=== PATIENT | female | born 1960 | race American Indian/Alaskan Native ===

== ENCOUNTER 2017-02-11 18:30 | Emergency (ER) | payer BC, MEDICAID, OTHER ==
[2017-02-11 20:00] VITALS: BP 147/94
[2017-02-11 20:21] LABS: CHLORIDE,CL 105 mmol/L (101-111); SODIUM,NA 141 mmol/L (135-145)
--- NOTE | 2017-02-11 21:22 | EDM.PDOC ---
ED HPI GENERAL MEDICAL PROBLEM - General Chief Complaint: General Stated Complaint: WEAK Time Seen by Provider: 02/11/17 20:21 Source of Information: Reports: Patient History Limitations: Reports: No Limitations - History of Present Illness INITIAL COMMENTS - FREE TEXT/NARRATIVE: c/o feeling, weak and nauseated. Reports being "sick" since January. Was seen approximately 2 weeks ago for sinus infection, Just finished Augmentin on . - Related Data Allergies Allergy/AdvReac Type Severity Reaction Status Date / Time escitalopram oxalate Allergy Cannot Verified 10/27/15 10:23 [From Lexapro] Remember sertraline HCl [From Zoloft] Allergy Cannot Verified 10/27/15 10:23 Remember Home Meds: Home Meds Levothyroxine Sodium [Tirosint] 125 mcg PO DAILY 01/05/14 [History] [place]/Min Oil/Mana/Wool Alcoh [Eucerin Creme] 1 applic TOP QID PRN 09/09/15 [ History] Triamcinolone Acetonide [Triamcinolone Acetonide 0.1% Crm] 1 applic TOP QID PRN 09/09/15 [History] Cholecalciferol (Vitamin D3) [Vitamin D] 2 tab PO DAILY 09/30/15 [History] Past Medical History HEENT History: Reports: Cataract, Sinusitis Cardiovascular History: Reports: High Cholesterol Respiratory History: Reports: Bronchitis, Recurrent, Pneumonia, Recurrent Gastrointestinal History: Reports: Chronic Constipation, Chronic Diarrhea Genitourinary History: Reports: None 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: Musculoskeletal History: Reports: Fibromyalgia Other Musculoskeletal History: muscle aches Neurological History: Reports: None Psychiatric History: Reports: Depression Endocrine/Metabolic History: Reports: Hypothyroidism Hematologic History: Reports: Anemia Immunologic History: Reports: None Oncologic (Cancer) History: Reports: None Dermatologic History: Reports: Urticaria, Other (See Below) Other Dermatologic History: ALLERGIC TO SUNLIGHT - Past Surgical History HEENT Surgical History: Reports: None Social & Family History - Tobacco Use Smoking Status *Q: Former Smoker Years of Tobacco use: 20 Used Tobacco, but Quit: No Month Tobacco Last Used: 08/20/2012 Second Hand Smoke Exposure: No - Caffeine Use Caffeine Use: Reports: Coffee - Alcohol Use Days Per Week of Alcohol Use: 0 - Recreational Drug Use Recreational Drug Use: No - Living Situation & Occupation Living situation: Reports: with Family ED ROS GENERAL - Review of Systems Review Of Systems: See Below Constitutional: Reports: Malaise HEENT: Reports: No Symptoms Respiratory: Reports: No Symptoms Cardiovascular: Reports: No Symptoms GI/Abdominal: Reports: Nausea : Reports: No Symptoms Musculoskeletal: Reports: No Symptoms Skin: Reports: No Symptoms Neurological: Reports: No Symptoms Psychiatric: Reports: No Symptoms ED EXAM, GENERAL - Physical Exam Exam: See Below Exam Limited By: No Limitations General Appearance: Alert, No Apparent Distress, Anxious Ears: Normal External Exam, Normal TMs Nose: Normal Inspection. No: Nasal Drainage Throat/Mouth: Normal Inspection, Normal Lips, Normal Teeth, Normal Oropharynx, Normal Voice Head: Atraumatic, Normocephalic Neck: Normal Inspection, Supple, Non-Tender. No: Lymphadenopathy (L), Lymphadenopathy (R) Respiratory/Chest: No Respiratory Distress, Lungs Clear, Normal Breath Sounds Cardiovascular: Normal Peripheral Pulses, Regular Rate, Rhythm GI/Abdominal: Normal Bowel Sounds, Soft, Non-Tender Extremities: Normal Inspection Neurological: Alert, Oriented, CN II-XII Intact, Normal Cognition, Normal Gait, Normal Reflexes Psychiatric: Normal Affect, Depressed Mood, Flat Affect Skin Exam: Warm, Dry, Intact, Normal Color, No Rash Course - Vital Signs Last Recorded V/S: Last Vital Signs Temp 98.5 F 02/11/17 19:59 Pulse 119 H 02/11/17 19:59 Resp 20 02/11/17 19:59 BP 147/94 H 02/11/17 19:59 Pulse Ox 100 02/11/17 19:59 - Orders/Labs/Meds Labs: Laboratory Tests 02/11/17 02/11/17 02/11/17 Range/Units 19:55 19:55 19:55 WBC 12.0 H (5.0-10.0) 10^3/uL RBC 4.61 (4.2-5.4) 10^6/uL Hgb 14.1 (12.0-16.0) g/dL Hct 42.5 (37.0-47.0) % MCV 92.2 (80-100) fL MCH 30.6 (27.0-34.0) pg MCHC 33.2 (33.0-35.0) g/dL Plt Count 290 (150-450) 10^3/uL Neut % (Auto) 66.8 (42.2-75.2) % Lymph % (Auto) 25.8 (20.5-50.1) % [place] % (Auto) 5.4 (2-8) % Eos % (Auto) 1.9 (1.0-3.0) % Baso % (Auto) 0.1 (0.0-1.0) % Sodium 141 (135-145) mmol/L Potassium 3.8 (3.6-5.0) mmol/L Chloride 105 (101-111) mmol/L Carbon Dioxide 23.0 (21.0-31.0) mmol/L Anion Gap 16.8 BUN 17 (7-18) mg/dL Creatinine 0.9 (0.6-1.3) mg/dL Est Cr Clr Drug Dosing TNP Estimated GFR (MDRD) > 60 BUN/Creatinine Ratio 18.88 Glucose 118 H (74-105) mg/dL Calcium 9.3 (8.4-10.2) mg/dl Total Bilirubin 0.5 (0.2-1.0) mg/dL AST 19 (10-42) IU/L ALT 23 (10-60) IU/L Alkaline Phosphatase 73 (42-121) IU/L Troponin I < 0.02 (0.00-0.02) ng/ml C-Reactive Protein 0.7 (0.0-1.3) mg/dL B-Natriuretic Peptide (0-100) pg/ml Total Protein 7.7 (6.7-8.2) g/dl Albumin 4.3 (3.2-5.5) g/dl Globulin 3.4 Albumin/Globulin Ratio 1.26 Urine Color (YELLOW) Urine Appearance (CLEAR) Urine pH (5.0-9.0) Ur Specific [place] (1.005-1.030) Urine Protein (NEGATIVE) Urine Glucose (UA) (NEGATIVE) Urine Ketones (NEGATIVE) Urine Occult Blood (NEGATIVE) Urine Nitrite (NEGATIVE) Urine Bilirubin (NEGATIVE) Urine Urobilinogen (0.2-1.0) mg/dL Ur Leukocyte Esterase (NEGATIVE) Urine RBC /HPF Urine WBC (0-5/HPF) /HPF Ur Epithelial Cells /HPF Urine Bacteria (0-FEW/HPF) /HPF 02/11/17 02/11/17 Range/Units 19:55 20:48 WBC (5.0-10.0) 10^3/uL RBC (4.2-5.4) 10^6/uL Hgb (12.0-16.0) g/dL Hct (37.0-47.0) % MCV (80-100) fL MCH (27.0-34.0) pg MCHC (33.0-35.0) g/dL Plt Count (150-450) 10^3/uL Neut % (Auto) (42.2-75.2) % Lymph % (Auto) (20.5-50.1) % [place] % (Auto) (2-8) % Eos % (Auto) (1.0-3.0) % Baso % (Auto) (0.0-1.0) % Sodium (135-145) mmol/L Potassium (3.6-5.0) mmol/L Chloride (101-111) mmol/L Carbon Dioxide (21.0-31.0) mmol/L Anion Gap BUN (7-18) mg/dL Creatinine (0.6-1.3) mg/dL Est Cr Clr Drug Dosing Estimated GFR (MDRD) BUN/Creatinine Ratio Glucose (74-105) mg/dL Calcium (8.4-10.2) mg/dl Total Bilirubin (0.2-1.0) mg/dL AST (10-42) IU/L ALT (10-60) IU/L Alkaline Phosphatase (42-121) IU/L Troponin I (0.00-0.02) ng/ml C-Reactive Protein (0.0-1.3) mg/dL B-Natriuretic Peptide 17 (0-100) pg/ml Total Protein (6.7-8.2) g/dl Albumin (3.2-5.5) g/dl Globulin Albumin/Globulin Ratio Urine Color Yellow (YELLOW) Urine Appearance Clear (CLEAR) Urine pH 7.0 (5.0-9.0) Ur Specific [place] 1.015 (1.005-1.030) Urine Protein Negative (NEGATIVE) Urine Glucose (UA) Negative (NEGATIVE) Urine Ketones Negative (NEGATIVE) Urine Occult Blood Negative (NEGATIVE) Urine Nitrite Negative (NEGATIVE) Urine Bilirubin Negative (NEGATIVE) Urine Urobilinogen 0.2 (0.2-1.0) mg/dL Ur Leukocyte Esterase Negative (NEGATIVE) Urine RBC 0-5 /HPF Urine WBC 0-5 (0-5/HPF) /HPF Ur Epithelial Cells Few /HPF Urine Bacteria Occasional (0-FEW/HPF) /HPF Departure - Departure Time of Disposition: 21:17 Disposition: Home, Self-Care 01 Condition: Fair Clinical Impression: Weakness Fatigue Qualifiers: Fatigue type: unspecified Qualified Code(s): R53.83 - Other fatigue - Discharge Information Instructions: Fatigue Referrals: PCP,None [Primary Care Provider] - Forms: ED Department Discharge Additional Instructions: increase fluids follow up in clinic this week
--- NOTE | 2017-02-13 12:50 | EKG ---
02/11/2017 - CHRISTAL JARRETT - A 12-lead EKG shows normal sinus rhythm and sinus tachycardia with heart rate of 107. No significant ST elevation or ST depression noted on this 12-lead EKG. [facility] /[id number]
== END 2017-02-11 21:24 | disposition home or self-care (01) ==
LOC: DL.ED 18:30
DX: R53.1 Weakness (principal); R53.83 Other fatigue; E78.00 Pure hypercholesterolemia, unspecified; E03.9 Hypothyroidism, unspecified; Z87.01 Personal history of pneumonia (recurrent); Z88.8 Allergy status to other drugs, medicaments and biological substances; Z79.899 Other long term (current) drug therapy; Z87.891 Personal history of nicotine dependence
CPT/HCPCS: 36415; 71010; 80053; 81001; 83880; 84484; 85025; 86140; 87081; 87430; 93005; 99284

== ENCOUNTER 2019-07-14 12:22 | Inpatient (IN) | payer OTHER ==
[2019-07-14] MEDS ORDERED: Sodium Chloride 0.9% 1,000 ML IV ONE (13:17)
[2019-07-14 13:31] LABS: ANION GAP 14.8; CHLORIDE,CL 105 mmol/L (101-111); SODIUM,NA 139 mmol/L (135-145)
--- NOTE | 2019-07-14 14:23 | CR ---
EXAMINATION: Chest 2V SEX: Female AGE: 58 years CLINICAL HISTORY: 58-year-old female complaining of chest pain (2 month) and cough. Interpretation: Peribronchial "cuffing". No air trapping. Despite less than optimal inspiratory effort normal cardiac silhouette without signs of pulmonary vascular congestion, cephalization of flow, alveolar edema or dependent pleural effusion. External case monitor leads. No lung mass, hilar lymphadenopathy or focal lobar pneumonia. No atelectasis/collapse. No pneumothorax or pneumomediastinum.. CONCLUSION: Mild bronchitis. No new signs of heart failure, lung mass or focal lobar pneumonia when compared to 11 February 2017 exam.
[2019-07-14] MEDS ORDERED: Iopamidol 755 Mg/ML 100 ML Bottle IVPUSH ONE (14:31)
--- NOTE | 2019-07-14 14:37 | EDM.PDOC ---
ED HPI GENERAL MEDICAL PROBLEM - General Chief Complaint: Respiratory Problem Stated Complaint: COLD Time Seen by Provider: 07/14/19 14:15 Source of Information: Reports: Patient History Limitations: Reports: No Limitations - History of Present Illness INITIAL COMMENTS - FREE TEXT/NARRATIVE: This 58 yo female patient reports to the ED with substernal chest pain and a cough. The patient reports she has been on 2 different prescriptions for Augmentin and 1 prescription for Azithromycin. The patient reports her cough has continued, but over the past couple of days she has began to have the chest pain. The patient reports her initial antibiotics were prescribed for a right sided ear infection. The Azithromycin was prescribed for a bronchitis. The patient did not follow-up in the clinic due to the chest pain. Duration: Day(s):, Constant, Getting Worse Location: Reports: Chest Quality: Reports: Ache, Dull Severity: Moderate Improves with: Reports: None Worsens with: Reports: None Context: Reports: Other Associated Symptoms: Reports: Cough Left Shoulder Pain Score (Numeric/FACES): 10 - Related Data Allergies Allergy/AdvReac Type Severity Reaction Status Date / Time escitalopram oxalate Allergy Cannot Verified 10/27/15 10:23 [From Lexapro] Remember sertraline HCl [From Zoloft] Allergy Cannot Verified 10/27/15 10:23 Remember Home Meds: Home Meds Levothyroxine Sodium [Tirosint] 125 mcg PO DAILY 01/05/14 [History] [place]/Min Oil/Mana/Wool Alcoh [Eucerin Creme] 1 applic TOP QID PRN 09/09/15 [ History] Triamcinolone Acetonide [Triamcinolone Acetonide 0.1% Crm] 1 applic TOP QID PRN 09/09/15 [History] Cholecalciferol (Vitamin D3) [Vitamin D] 2 tab PO DAILY 09/30/15 [History] Methotrexate 2.5 mg PO DAILY 07/14/19 [History] predniSONE [Prednisone] 10 mg PO DAILY 07/14/19 [History] Past Medical History HEENT History: Reports: Cataract, Sinusitis Cardiovascular History: Reports: High Cholesterol Respiratory History: Reports: Bronchitis, Recurrent, Pneumonia, Recurrent Gastrointestinal History: Reports: Chronic Constipation, Chronic Diarrhea Genitourinary History: Reports: None 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: Musculoskeletal History: Reports: Fibromyalgia Other Musculoskeletal History: muscle aches Neurological History: Reports: None Psychiatric History: Reports: Depression Endocrine/Metabolic History: Reports: Hypothyroidism Hematologic History: Reports: Anemia Immunologic History: Reports: None Oncologic (Cancer) History: Reports: None Dermatologic History: Reports: Urticaria, Other (See Below) Other Dermatologic History: ALLERGIC TO SUNLIGHT - Past Surgical History HEENT Surgical History: Reports: None Social & Family History - Family History Family Medical History: Noncontributory - Caffeine Use Caffeine Use: Reports: Coffee - Living Situation & Occupation Living situation: Reports: with Family ED ROS GENERAL - Review of Systems Review Of Systems: Comprehensive ROS is negative, except as noted in HPI. ED EXAM, GENERAL - Physical Exam Exam: See Below Exam Limited By: No Limitations General Appearance: Alert, WD/WN, Moderate Distress Eye Exam: Bilateral Eye: EOMI, Normal Inspection, PERRL Ears: Normal External Exam, Normal Canal, Hearing Grossly Normal, Normal TMs Nose: Normal Inspection, Normal Mucosa, No Blood Throat/Mouth: Normal Inspection, Normal Lips, Normal Teeth, Normal Gums, Normal Oropharynx, Normal Voice, No Airway Compromise Head: Atraumatic, Normocephalic Neck: Normal Inspection, Supple, Non-Tender, Full Range of Motion Respiratory/Chest: No Respiratory Distress, Lungs Clear, Normal Breath Sounds, No Accessory Muscle Use, Chest Non-Tender Cardiovascular: Normal Peripheral Pulses, Regular Rate, Rhythm, No Edema, No Gallop, No JVD, No Murmur, No Rub GI/Abdominal: Normal Bowel Sounds, Soft, Non-Tender, No Organomegaly, No Distention, No Abnormal Bruit, No Mass (Female) Exam: Deferred Rectal (Female) Exam: Deferred Back Exam: Normal Inspection, Full Range of Motion, NT Extremities: Normal Inspection, Normal Range of Motion, Non-Tender, Normal Capillary Refill, No Pedal Edema Neurological: Alert, Oriented, CN II-XII Intact, Normal Cognition, Normal Gait, Normal Reflexes, No Motor/Sensory Deficits Psychiatric: Normal Affect, Normal Mood Skin Exam: Warm, Dry, Intact, Normal Color, No Rash Lymphatic: No Adenopathy Course - Vital Signs Last Recorded V/S: Last Vital Signs Temp 36.6 C 07/14/19 14:05 Pulse 113 H 07/14/19 14:05 Resp 18 07/14/19 14:05 BP 148/94 H 07/14/19 14:05 Pulse Ox 99 12/09/19 14:05 - Orders/Labs/Meds Orders: Active Orders 24 hr Category Date Time Status EKG Documentation Completion [RC] URGENT Care 07/14/19 12:55 Ordered Chest w Cont [CT] Urgent Exams 07/14/19 14:31 Ordered CULTURE BLOOD [BC] Stat Lab 07/14/19 12:56 Ordered DRUG SCREEN URINE BIORAD [URCHEM] Stat Lab 07/14/19 12:56 Ordered UA RFX BERNARDO AND CULT IF INDIC [URIN] Urgent Lab 07/14/19 12:56 Ordered Labs: Laboratory Tests 07/14/19 07/14/19 07/14/19 Range/Units 13:05 13:05 13:05 WBC 11.7 H (5.0-10.0) 10^3/uL RBC 4.28 (4.2-5.4) 10^6/uL Hgb 14.1 (12.0-16.0) g/dL Hct 41.8 (37.0-47.0) % MCV 97.7 (80-100) fL MCH 32.9 (27.0-34.0) pg MCHC 33.7 (33.0-35.0) g/dL Plt Count 268 (150-450) 10^3/uL Neut % (Auto) 82.5 H (42.2-75.2) % Lymph % (Auto) 13.4 L (20.5-50.1) % [place] % (Auto) 3.1 (2-8) % Eos % (Auto) 0.9 L (1.0-3.0) % Baso % (Auto) 0.1 (0.0-1.0) % Sodium 139 (135-145) mmol/L Potassium 3.8 (3.6-5.0) mmol/L Chloride 105 (101-111) mmol/L Carbon Dioxide 23.0 (21.0-31.0) mmol/L Anion Gap 14.8 BUN 11 (7-18) mg/dL Creatinine 1.0 (0.6-1.3) mg/dL Est Cr Clr Drug Dosing TNP Estimated GFR (MDRD) 57 BUN/Creatinine Ratio 11.00 Glucose 139 H (74-105) mg/dL Lactic Acid 2.6 H (0.5-2.2) mmol/L Calcium 9.1 (8.4-10.2) mg/dl Total Bilirubin 0.7 (0.2-1.0) mg/dL AST 28 (10-42) IU/L ALT 32 (10-60) IU/L Alkaline Phosphatase 72 (42-121) IU/L Troponin I < 0.02 (0.00-0.02) ng/ml Total Protein 7.4 (6.7-8.2) g/dl Albumin 4.2 (3.2-5.5) g/dl Globulin 3.2 Albumin/Globulin Ratio 1.31 Meds: Medications Discontinued Medications Generic Name Dose Route Start Last Admin Trade Name Freq PRN Reason Stop Dose Admin Sodium Chloride 1,000 mls @ 999 mls/hr 07/14/19 13:17 07/14/19 13:30 Normal Saline IV 07/14/19 14:17 999 mls/hr .BOLUS ONE Administration Iopamidol 100 ml 07/14/19 14:31 Isovue-370 (76%) IVPUSH 07/14/19 14:32 ONETIME ONE Departure - Departure Time of Disposition: 14:38 Disposition: Admitted As Inpatient 65 Condition: Fair Clinical Impression: Cough Chest pain Qualifiers: Chest pain type: chest pain on breathing Qualified Code(s): R07.1 - Chest pain on breathing; R07.81 - Pleurodynia - Discharge Information *PRESCRIPTION DRUG MONITORING PROGRAM REVIEWED*: Not Applicable *COPY OF PRESCRIPTION DRUG MONITORING REPORT IN PATIENT ELE: Not Applicable Care Plan Goals: Discussed the patient's history, examination, lab and x-ray results with Dr. Zapata. Dr. Zapata accepted the patient for continued evaluation and management as an inpatient at [facility]. Prior to admission to the floor, the patient was taken to radiology for a CT of her chest to make sure the patient does not have a PE. - My Orders Last 24 Hours: My Active Orders 07/14/19 12:55 EKG Documentation Completion [RC] URGENT 07/14/19 12:56 CULTURE BLOOD [BC] Stat DRUG SCREEN URINE BIORAD [URCHEM] Stat UA RFX BERNARDO AND CULT IF INDIC [URIN] Urgent 07/14/19 14:31 Chest w Cont [CT] Urgent - Assessment/Plan Last 24 Hours: My Active Orders 07/14/19 12:55 EKG Documentation Completion [RC] URGENT 07/14/19 12:56 CULTURE BLOOD [BC] Stat DRUG SCREEN URINE BIORAD [URCHEM] Stat UA RFX BERNARDO AND CULT IF INDIC [URIN] Urgent 07/14/19 14:31 Chest w Cont [CT] Urgent
--- NOTE | 2019-07-14 16:07 | PCM.HP ---
H&P History of Present Illness - General Date of Service: 07/14/19 Admit Problem/Dx: Admission Diagnosis/Problem Admission Diagnosis/Problem Pneumonia Source of Information: Patient - History of Present Illness Initial Comments - Free Text/Narative: 58-year-old with a history of rheumatoid arthritis who is immunocompromised on prednisone. Patient developed right ear drainage about a month ago. Was described Augmentin that she took about a week. Few days later was developing cough. Given another 10 days of Augmentin. Later she developed sinus frontal maxillary pressure. Symptoms did not improve and subsequently received azithromycin for the same symptoms. On the day of admission the patient presented to the emergency room with chest pain. This is midsternal chest pain, only present with coughing. No associated sputum. No hemoptysis. No abdominal pain, no diarrhea, no leg swelling. In the emergency room the patient was noted to have leukocytosis, elevated lactic acid, tachycardia along with possible infection and was concern for sepsis. Left Shoulder Pain Score (Numeric/FACES): 10 - Related Data Allergies/Adverse Reactions: Allergies Allergy/AdvReac Type Severity Reaction Status Date / Time cetirizine [From Zyrtec] Allergy Chest Pain Verified 07/14/19 15:40 escitalopram oxalate Allergy Cannot Verified 10/27/15 10:23 [From Lexapro] Remember sertraline HCl [From Zoloft] Allergy Cannot Verified 10/27/15 10:23 Remember Home Medications: Home Meds Levothyroxine Sodium [Tirosint] 125 mcg PO DAILY 01/05/14 [History] Triamcinolone Acetonide [Triamcinolone Acetonide 0.1% Crm] 1 applic TOP QID PRN 09/09/15 [History] Cholecalciferol (Vitamin D3) [Vitamin D] 1 tab PO DAILY 09/30/15 [History] Folic Acid 1 mg PO DAILY 07/14/19 [History] Methotrexate 7.5 mg PO .EVERYFRIDAY 07/14/19 [History] Tocilizumab [Actemra] 162 mg SQ .[id number] 07/14/19 [History] predniSONE [Prednisone] 10 mg PO DAILY 07/14/19 [History] Past Medical History HEENT History: Reports: Cataract, Sinusitis Cardiovascular History: Reports: High Cholesterol Respiratory History: Reports: Bronchitis, Recurrent, Pneumonia, Recurrent Gastrointestinal History: Reports: Chronic Constipation, Chronic Diarrhea Genitourinary History: Reports: None 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: Musculoskeletal History: Reports: Fibromyalgia Other Musculoskeletal History: muscle aches Neurological History: Reports: None Psychiatric History: Reports: Depression Endocrine/Metabolic History: Reports: Hypothyroidism Hematologic History: Reports: Anemia Immunologic History: Reports: None Oncologic (Cancer) History: Reports: None Dermatologic History: Reports: Urticaria, Other (See Below) Other Dermatologic History: ALLERGIC TO SUNLIGHT - Past Surgical History HEENT Surgical History: Reports: None Social & Family History - Family History Family Medical History: Noncontributory - Tobacco Use Smoking Status *Q: Never Smoker Second Hand Smoke Exposure: No - Caffeine Use Caffeine Use: Reports: Coffee, Soda, Tea - Recreational Drug Use Recreational Drug Use: No - Living Situation & Occupation Living situation: Reports: with Family H&P Review of Systems - Review of Systems: Review Of Systems: See Below General: Denies: Fever Pulmonary: Reports: Shortness of Breath, Pleuritic Chest Pain, Cough. Denies: Wheezing, Sputum, Hemoptysis Cardiovascular: Reports: Chest Pain. Denies: Palpitations (Pleuritic), Edema Gastrointestinal: Denies: Abdominal Pain Genitourinary: Denies: Dysuria Psychiatric: Denies: Confusion Exam - Exam Exam: See Below - Vital Signs Vital Signs: Last Vital Signs Temp 36.6 C 07/14/19 14:05 Pulse 113 H 07/14/19 14:05 Resp 18 07/14/19 14:05 BP 148/94 H 07/14/19 14:05 Pulse Ox 99 07/14/19 14:05 Weight: 92.805 kg - Exam Quality Assessment: No: Supplemental Oxygen General: Alert, Oriented HEENT: EOMI Neck: Supple Lungs: Clear to Auscultation, Normal Respiratory Effort Cardiovascular: Regular Rate, Regular Rhythm, Tachycardia GI/Abdominal Exam: Normal Bowel Sounds, Soft, Non-Tender Extremities: No Pedal Edema Skin: Warm Neuro Extensive - Mental Status: Alert, Oriented x3, Normal Mood/Affect - Patient Data Lab Results Last 24 hrs: Laboratory Results - last 24 hr 07/14/19 07/14/19 07/14/19 Range/Units 13:05 13:05 13:05 WBC 11.7 H (5.0-10.0) 10^3/uL RBC 4.28 (4.2-5.4) 10^6/uL Hgb 14.1 (12.0-16.0) g/dL Hct 41.8 (37.0-47.0) % MCV 97.7 (80-100) fL MCH 32.9 (27.0-34.0) pg MCHC 33.7 (33.0-35.0) g/dL Plt Count 268 (150-450) 10^3/uL Neut % (Auto) 82.5 H (42.2-75.2) % Lymph % (Auto) 13.4 L (20.5-50.1) % [place] % (Auto) 3.1 (2-8) % Eos % (Auto) 0.9 L (1.0-3.0) % Baso % (Auto) 0.1 (0.0-1.0) % Sodium 139 (135-145) mmol/L Potassium 3.8 (3.6-5.0) mmol/L Chloride 105 (101-111) mmol/L Carbon Dioxide 23.0 (21.0-31.0) mmol/L Anion Gap 14.8 BUN 11 (7-18) mg/dL Creatinine 1.0 (0.6-1.3) mg/dL Est Cr Clr Drug Dosing TNP Estimated GFR (MDRD) 57 BUN/Creatinine Ratio 11.00 Glucose 139 H (74-105) mg/dL Lactic Acid 2.6 H (0.5-2.2) mmol/L Calcium 9.1 (8.4-10.2) mg/dl Total Bilirubin 0.7 (0.2-1.0) mg/dL AST 28 (10-42) IU/L ALT 32 (10-60) IU/L Alkaline Phosphatase 72 (42-121) IU/L Troponin I < 0.02 (0.00-0.02) ng/ml Total Protein 7.4 (6.7-8.2) g/dl Albumin 4.2 (3.2-5.5) g/dl Globulin 3.2 Albumin/Globulin Ratio 1.31 Urine Color (YELLOW) Urine Appearance (CLEAR) Urine pH (5.0-9.0) Ur Specific [place] (1.005-1.030) Urine Protein (NEGATIVE) Urine Glucose (UA) (NEGATIVE) Urine Ketones (NEGATIVE) Urine Occult Blood (NEGATIVE) Urine Nitrite (NEGATIVE) Urine Bilirubin (NEGATIVE) Urine Urobilinogen (0.2-1.0) mg/dL Ur Leukocyte Esterase (NEGATIVE) Urine RBC /HPF Urine WBC (0-5/HPF) /HPF Ur Epithelial Cells (NOT SEEN) /HPF Urine Bacteria (0-FEW/HPF) /HPF Urine Opiates Screen (NEGATIVE) Ur Oxycodone Screen (NEGATIVE) Urine Methadone Screen (NEGATIVE) Ur Barbiturates Screen (NEGATIVE) U Tricyclic Antidepress (NEGATIVE) Ur Phencyclidine Scrn (NEGATIVE) Ur Amphetamine Screen (NEGATIVE) U Methamphetamines Scrn (NEGATIVE) Urine MDMA Screen (NEGATIVE) U Benzodiazepines Scrn (NEGATIVE) Urine Cocaine Screen (NEGATIVE) U Marijuana (THC) Screen (NEGATIVE) 07/14/19 07/14/19 Range/Units 15:05 15:05 WBC (5.0-10.0) 10^3/uL RBC (4.2-5.4) 10^6/uL Hgb (12.0-16.0) g/dL Hct (37.0-47.0) % MCV (80-100) fL MCH (27.0-34.0) pg MCHC (33.0-35.0) g/dL Plt Count (150-450) 10^3/uL Neut % (Auto) (42.2-75.2) % Lymph % (Auto) (20.5-50.1) % [place] % (Auto) (2-8) % Eos % (Auto) (1.0-3.0) % Baso % (Auto) (0.0-1.0) % Sodium (135-145) mmol/L Potassium (3.6-5.0) mmol/L Chloride (101-111) mmol/L Carbon Dioxide (21.0-31.0) mmol/L Anion Gap BUN (7-18) mg/dL Creatinine (0.6-1.3) mg/dL Est Cr Clr Drug Dosing Estimated GFR (MDRD) BUN/Creatinine Ratio Glucose (74-105) mg/dL Lactic Acid (0.5-2.2) mmol/L Calcium (8.4-10.2) mg/dl Total Bilirubin (0.2-1.0) mg/dL AST (10-42) IU/L ALT (10-60) IU/L Alkaline Phosphatase (42-121) IU/L Troponin I (0.00-0.02) ng/ml Total Protein (6.7-8.2) g/dl Albumin (3.2-5.5) g/dl Globulin Albumin/Globulin Ratio Urine Color Yellow (YELLOW) Urine Appearance Clear (CLEAR) Urine pH 5.5 (5.0-9.0) Ur Specific [place] 1.010 (1.005-1.030) Urine Protein Negative (NEGATIVE) Urine Glucose (UA) Negative (NEGATIVE) Urine Ketones Negative (NEGATIVE) Urine Occult Blood Trace-intact H (NEGATIVE) Urine Nitrite Negative (NEGATIVE) Urine Bilirubin Negative (NEGATIVE) Urine Urobilinogen 0.2 (0.2-1.0) mg/dL Ur Leukocyte Esterase Negative (NEGATIVE) Urine RBC 0-5 /HPF Urine WBC Not seen (0-5/HPF) /HPF Ur Epithelial Cells Rare (NOT SEEN) /HPF Urine Bacteria Rare (0-FEW/HPF) /HPF Urine Opiates Screen Negative (NEGATIVE) Ur Oxycodone Screen Negative (NEGATIVE) Urine Methadone Screen Negative (NEGATIVE) Ur Barbiturates Screen Negative (NEGATIVE) U Tricyclic Antidepress Negative (NEGATIVE) Ur Phencyclidine Scrn Negative (NEGATIVE) Ur Amphetamine Screen Negative (NEGATIVE) U Methamphetamines Scrn Negative (NEGATIVE) Urine MDMA Screen Negative (NEGATIVE) U Benzodiazepines Scrn Negative (NEGATIVE) Urine Cocaine Screen Negative (NEGATIVE) U Marijuana (THC) Screen Negative (NEGATIVE) Result Diagrams: 07/14/19 13:05 07/14/19 13:05 - Problem List (1) Chest pain SNOMED Code(s): 10927052 ICD Code: R07.9 - CHEST PAIN, UNSPECIFIED Status: Acute Current Visit: No Qualifiers: Chest pain type: chest pain on breathing Qualified Code(s): R07.1 - Chest pain on breathing; R07.81 - Pleurodynia (2) Cough SNOMED Code(s): 72308153 ICD Code: R05 - COUGH Status: Acute Current Visit: No Problem List Initiated/Reviewed/Updated: Yes Orders Last 24hrs: Active Orders 24 hr Category Date Time Status Admission Diagnosis [ADT] Routine ADT 07/14/19 15:14 Ordered Admission Status [Patient Status] [ADT] Routine ADT 07/14/19 15:14 Active EKG Documentation Completion [RC] URGENT Care 07/14/19 12:55 Active Chest w Cont [CT] Urgent Exams 07/14/19 14:31 Taken BASIC METABOLIC PANEL,BMP [CHEM] AM Lab 07/15/19 05:15 Ordered CBC WITH AUTO DIFF [HEME] AM Lab 07/15/19 05:15 Ordered CULTURE BLOOD [BC] Stat Lab 07/14/19 13:05 Received LACTIC ACID [CHEM] AM Lab 07/15/19 05:11 Ordered LACTIC ACID [CHEM] Timed Lab 07/14/19 17:00 Ordered TROPONIN I [CHEM] Timed Lab 07/15/19 17:00 Ordered Pharmacy to Dose - Vancomycin Med 07/14/19 15:45 Ordered 1 dose .XX ASDIRECTED Piperacillin/Tazobactam [Zosyn] 3.375 gm Med 07/14/19 15:45 Ordered Sodium Chloride 0.9% [Normal Saline] 100 ml IV Q6H Medication Orders Piperacillin Sod/Tazobactam (Sod 3.375 gm/ Sodium Chloride) 100 mls @ 200 mls/ hr IV Q6HR [facility] Vancomycin HCl (Pharmacy To Dose - Vancomycin) 1 dose .XX ASDIRECTED [facility] Assessment/Plan Comment:: 58-year-old presented with right ear ache and drainage developing into symptoms of sinusitis and possibly bronchitis/pneumonia. Evaluate for sepsis We will repeat lactic acid Treat for infection Because of sinusitis, bronchitis might be bacterial infection Obtain sputum culture Obtain blood culture The patient has not improved with outpatient antibiotic courses of repeated Augmentin and azithromycin We will treat with vancomycin and Zosyn Other causes of dry cough might be sinus drainage, gastroesophageal reflux disease We will also add nasal steroid, PPI Obtain chest CT to evaluate for other causes of dry cough Chest pain is unlikely cardiac We will repeat another troponin History rheumatoid arthritis Continue prednisone DVT prophylaxis with subcutaneous heparin
--- NOTE | 2019-07-14 16:20 | CT ---
EXAMINATION: Chest w Cont SEX: Female AGE: 58 years CLINICAL HISTORY: 58-year-old female with left intercostal sternal CHEST wall PAIN. No known cardiac abnormalities. Cough. WBC 7600. Scan technique: Volume acquisition of data from the chest (bony thorax, lungs and mediastinum) obtained during the intravenous administration 75 cc nonionic Isovue 370 contrast at 5 cc/s (via injector per PE protocol) while patient was lying supine on the Siemens multislice scanner [place], [place]. All data archived in the PACS system for storage, reformatting and study. Interpretation: 1. No sign of intraluminal filling defect or thrombus pulmonary artery circulation either lung. 2. No abnormal focal areas of oligemia, peripheral pleural-based infarct, or dependent pleural effusion. 3. No focal lobar atelectasis/collapse or infiltrate. (Isolated tiny 4.3 mm pleural-based nodule laterally in the right midlung, anteriorly. No other parenchymal lung nodules.) 4. Normal cardiac size and configuration. No pericardial effusion. 5. No pulmonary vascular congestion or alveolar edema. No thoracic aortic aneurysm. 6. Cholecystectomy. Fatty liver. Upper abdominal viscera otherwise unremarkable. CONCLUSION: No evidence of pulmonary embolism/infarct. No heart failure. No Lung mass. No lobar pneumonia.
[2019-07-14] MEDS: Piperacillin/Tazobactam 3.375 GM in Sodium Chloride 0.9% 100 ML IV SCH (19:10)
[2019-07-14] MEDS: Fluticasone Propionate Nasal Spray 16 GM Bottle NASBOTH SCH (20:47)
[2019-07-14] MEDS ORDERED: Ondansetron 4 MG/2 ML SDV IVPUSH PRN (21:29)
[2019-07-14] MEDS ORDERED: Ondansetron 4 MG Tab.DIS PO PRN (21:29)
[2019-07-14] MEDS ORDERED: Zolpidem 5 MG Tab PO PRN (21:29)
[2019-07-14] MEDS ORDERED: Acetaminophen 325 MG Tab PO PRN (21:29)
[2019-07-14] MEDS: Heparin Sodium 5,000 Units/ML Vial SUBCUT SCH (22:19)
[2019-07-15] MEDS: Piperacillin/Tazobactam 3.375 GM in Sodium Chloride 0.9% 100 ML IV SCH ×4 (00:09→18:11)
[2019-07-15] MEDS: Pantoprazole 40 MG Tab.CR PO SCH ×2 (05:46→16:31)
[2019-07-15] MEDS: Heparin Sodium 5,000 Units/ML Vial SUBCUT SCH ×3 (05:46→22:20)
[2019-07-15 06:29] LABS: ANION GAP 13.5; CHLORIDE,CL 106 mmol/L (101-111); SODIUM,NA 139 mmol/L (135-145)
[2019-07-15] MEDS ORDERED: Levothyroxine 125 MCG Tab PO SCH (07:00)
[2019-07-15] MEDS: Folic Acid 1 MG Tab PO SCH (08:50)
[2019-07-15] MEDS: predniSONE 10 MG Tab PO SCH (08:50)
[2019-07-15] MEDS: Cholecalciferol (Vitamin D3) 25 MCG Tab PO SCH (08:50)
[2019-07-15] MEDS: Fluticasone Propionate Nasal Spray 16 GM Bottle NASBOTH SCH ×2 (08:51→22:19)
[2019-07-15] MEDS: Sodium Chloride 0.9% 10 ML Syringe FLUSH PRN (08:53)
[2019-07-15] MEDS ORDERED: Potassium Chloride 10 MEQ Tab.ER PO ONE (10:58)
--- NOTE | 2019-07-15 10:58 | PCM.PN ---
- General Info Date of Service: 07/15/19 Admission Dx/Problem (Free Text): Admission Diagnosis/Problem Admission Diagnosis/Problem Pneumonia Subjective Update: continues to have cough, non productive no associated sob no cp no fever Functional Status: Reports: Pain Controlled, Tolerating Diet - Review of Systems General: Denies: Fever Pulmonary: Reports: Cough. Denies: Shortness of Breath, Sputum, Hemoptysis, Wheezing Cardiovascular: Denies: Chest Pain Gastrointestinal: Denies: Abdominal Pain Psychiatric: Denies: Confusion - Patient Data Vitals - Most Recent: Last Vital Signs Temp 37.0 C 07/15/19 01:29 Pulse 70 07/15/19 01:29 Resp 18 07/15/19 01:29 BP 115/69 07/15/19 01:29 Pulse Ox 100 07/15/19 01:29 Weight - Most Recent: 92.805 kg I&O - Last 24 Hours: Intake & Output 07/14/19 07/15/19 07/15/19 22:59 06:59 14:59 Intake Total 100 404 Output Total 1500 300 Balance -1400 104 Lab Results Last 24 Hours: Laboratory Results - last 24 hr 07/14/19 07/14/19 07/14/19 Range/Units 13:05 13:05 13:05 WBC 11.7 H (5.0-10.0) 10^3/uL RBC 4.28 (4.2-5.4) 10^6/uL Hgb 14.1 (12.0-16.0) g/dL Hct 41.8 (37.0-47.0) % MCV 97.7 (80-100) fL MCH 32.9 (27.0-34.0) pg MCHC 33.7 (33.0-35.0) g/dL Plt Count 268 (150-450) 10^3/uL Neut % (Auto) 82.5 H (42.2-75.2) % Lymph % (Auto) 13.4 L (20.5-50.1) % [place] % (Auto) 3.1 (2-8) % Eos % (Auto) 0.9 L (1.0-3.0) % Baso % (Auto) 0.1 (0.0-1.0) % Sodium 139 (135-145) mmol/L Potassium 3.8 (3.6-5.0) mmol/L Chloride 105 (101-111) mmol/L Carbon Dioxide 23.0 (21.0-31.0) mmol/L Anion Gap 14.8 BUN 11 (7-18) mg/dL Creatinine 1.0 (0.6-1.3) mg/dL Est Cr Clr Drug Dosing TNP Estimated GFR (MDRD) 57 BUN/Creatinine Ratio 11.00 Glucose 139 H (74-105) mg/dL Lactic Acid 2.6 H (0.5-2.2) mmol/L Calcium 9.1 (8.4-10.2) mg/dl Total Bilirubin 0.7 (0.2-1.0) mg/dL AST 28 (10-42) IU/L ALT 32 (10-60) IU/L Alkaline Phosphatase 72 (42-121) IU/L Troponin I < 0.02 (0.00-0.02) ng/ml Total Protein 7.4 (6.7-8.2) g/dl Albumin 4.2 (3.2-5.5) g/dl Globulin 3.2 Albumin/Globulin Ratio 1.31 Urine Color (YELLOW) Urine Appearance (CLEAR) Urine pH (5.0-9.0) Ur Specific [place] (1.005-1.030) Urine Protein (NEGATIVE) Urine Glucose (UA) (NEGATIVE) Urine Ketones (NEGATIVE) Urine Occult Blood (NEGATIVE) Urine Nitrite (NEGATIVE) Urine Bilirubin (NEGATIVE) Urine Urobilinogen (0.2-1.0) mg/dL Ur Leukocyte Esterase (NEGATIVE) Urine RBC /HPF Urine WBC (0-5/HPF) /HPF Ur Epithelial Cells (NOT SEEN) /HPF Urine Bacteria (0-FEW/HPF) /HPF Urine Opiates Screen (NEGATIVE) Ur Oxycodone Screen (NEGATIVE) Urine Methadone Screen (NEGATIVE) Ur Barbiturates Screen (NEGATIVE) U Tricyclic Antidepress (NEGATIVE) Ur Phencyclidine Scrn (NEGATIVE) Ur Amphetamine Screen (NEGATIVE) U Methamphetamines Scrn (NEGATIVE) Urine MDMA Screen (NEGATIVE) U Benzodiazepines Scrn (NEGATIVE) Urine Cocaine Screen (NEGATIVE) U Marijuana (THC) Screen (NEGATIVE) 07/14/19 07/14/19 07/14/19 Range/Units 15:05 15:05 17:06 WBC (5.0-10.0) 10^3/uL RBC (4.2-5.4) 10^6/uL Hgb (12.0-16.0) g/dL Hct (37.0-47.0) % MCV (80-100) fL MCH (27.0-34.0) pg MCHC (33.0-35.0) g/dL Plt Count (150-450) 10^3/uL Neut % (Auto) (42.2-75.2) % Lymph % (Auto) (20.5-50.1) % [place] % (Auto) (2-8) % Eos % (Auto) (1.0-3.0) % Baso % (Auto) (0.0-1.0) % Sodium (135-145) mmol/L Potassium (3.6-5.0) mmol/L Chloride (101-111) mmol/L Carbon Dioxide (21.0-31.0) mmol/L Anion Gap BUN (7-18) mg/dL Creatinine (0.6-1.3) mg/dL Est Cr Clr Drug Dosing Estimated GFR (MDRD) BUN/Creatinine Ratio Glucose (74-105) mg/dL Lactic Acid 1.3 (0.5-2.2) mmol/L Calcium (8.4-10.2) mg/dl Total Bilirubin (0.2-1.0) mg/dL AST (10-42) IU/L ALT (10-60) IU/L Alkaline Phosphatase (42-121) IU/L Troponin I (0.00-0.02) ng/ml Total Protein (6.7-8.2) g/dl Albumin (3.2-5.5) g/dl Globulin Albumin/Globulin Ratio Urine Color Yellow (YELLOW) Urine Appearance Clear (CLEAR) Urine pH 5.5 (5.0-9.0) Ur Specific [place] 1.010 (1.005-1.030) Urine Protein Negative (NEGATIVE) Urine Glucose (UA) Negative (NEGATIVE) Urine Ketones Negative (NEGATIVE) Urine Occult Blood Trace-intact H (NEGATIVE) Urine Nitrite Negative (NEGATIVE) Urine Bilirubin Negative (NEGATIVE) Urine Urobilinogen 0.2 (0.2-1.0) mg/dL Ur Leukocyte Esterase Negative (NEGATIVE) Urine RBC 0-5 /HPF Urine WBC Not seen (0-5/HPF) /HPF Ur Epithelial Cells Rare (NOT SEEN) /HPF Urine Bacteria Rare (0-FEW/HPF) /HPF Urine Opiates Screen Negative (NEGATIVE) Ur Oxycodone Screen Negative (NEGATIVE) Urine Methadone Screen Negative (NEGATIVE) Ur Barbiturates Screen Negative (NEGATIVE) U Tricyclic Antidepress Negative (NEGATIVE) Ur Phencyclidine Scrn Negative (NEGATIVE) Ur Amphetamine Screen Negative (NEGATIVE) U Methamphetamines Scrn Negative (NEGATIVE) Urine MDMA Screen Negative (NEGATIVE) U Benzodiazepines Scrn Negative (NEGATIVE) Urine Cocaine Screen Negative (NEGATIVE) U Marijuana (THC) Screen Negative (NEGATIVE) 07/15/19 07/15/19 07/15/19 Range/Units 05:16 05:16 05:16 WBC 9.5 (5.0-10.0) 10^3/uL RBC 3.86 L (4.2-5.4) 10^6/uL Hgb 12.6 D (12.0-16.0) g/dL Hct 38.3 (37.0-47.0) % MCV 99.2 (80-100) fL MCH 32.6 (27.0-34.0) pg MCHC 32.9 L (33.0-35.0) g/dL Plt Count 262 (150-450) 10^3/uL Neut % (Auto) 53.2 (42.2-75.2) % Lymph % (Auto) 35.0 (20.5-50.1) % [place] % (Auto) 7.8 (2-8) % Eos % (Auto) 3.8 H (1.0-3.0) % Baso % (Auto) 0.2 (0.0-1.0) % Sodium 139 (135-145) mmol/L Potassium 3.5 L (3.6-5.0) mmol/L Chloride 106 (101-111) mmol/L Carbon Dioxide 23.0 (21.0-31.0) mmol/L Anion Gap 13.5 BUN 12 (7-18) mg/dL Creatinine 0.8 (0.6-1.3) mg/dL Est Cr Clr Drug Dosing 70.88 Estimated GFR (MDRD) > 60 BUN/Creatinine Ratio Glucose 84 (74-105) mg/dL Lactic Acid 1.0 (0.5-2.2) mmol/L Calcium 8.5 (8.4-10.2) mg/dl Total Bilirubin (0.2-1.0) mg/dL AST (10-42) IU/L ALT (10-60) IU/L Alkaline Phosphatase (42-121) IU/L Troponin I (0.00-0.02) ng/ml Total Protein (6.7-8.2) g/dl Albumin (3.2-5.5) g/dl Globulin Albumin/Globulin Ratio Urine Color (YELLOW) Urine Appearance (CLEAR) Urine pH (5.0-9.0) Ur Specific [place] (1.005-1.030) Urine Protein (NEGATIVE) Urine Glucose (UA) (NEGATIVE) Urine Ketones (NEGATIVE) Urine Occult Blood (NEGATIVE) Urine Nitrite (NEGATIVE) Urine Bilirubin (NEGATIVE) Urine Urobilinogen (0.2-1.0) mg/dL Ur Leukocyte Esterase (NEGATIVE) Urine RBC /HPF Urine WBC (0-5/HPF) /HPF Ur Epithelial Cells (NOT SEEN) /HPF Urine Bacteria (0-FEW/HPF) /HPF Urine Opiates Screen (NEGATIVE) Ur Oxycodone Screen (NEGATIVE) Urine Methadone Screen (NEGATIVE) Ur Barbiturates Screen (NEGATIVE) U Tricyclic Antidepress (NEGATIVE) Ur Phencyclidine Scrn (NEGATIVE) Ur Amphetamine Screen (NEGATIVE) U Methamphetamines Scrn (NEGATIVE) Urine MDMA Screen (NEGATIVE) U Benzodiazepines Scrn (NEGATIVE) Urine Cocaine Screen (NEGATIVE) U Marijuana (THC) Screen (NEGATIVE) Med Orders - Current: Current Medications Acetaminophen (Tylenol) 650 mg PO Q4H PRN PRN Reason: Pain (Mild 1-3)/fever Cholecalciferol (Vitamin D3) 25 mcg PO DAILY [facility] Last Admin: 07/15/19 08:50 Dose: 25 mcg Fluticasone Propionate (Flonase) 0 gm NASBOTH BID [facility] Last Admin: 07/15/19 08:51 Dose: 2 spray Folic Acid (Folic Acid) 1 mg PO DAILY [facility] Last Admin: 07/15/19 08:50 Dose: 1 mg Guaifenesin/Phenylephrine HCl (Robitussin Dm) 10 ml PO TID [facility] Heparin Sodium (Porcine) (Heparin Sodium) 5,000 units SUBCUT Q8HR [facility] Last Admin: 07/15/19 05:46 Dose: 5,000 units Piperacillin Sod/Tazobactam (Sod 3.375 gm/ Sodium Chloride) 100 mls @ 200 mls/ hr IV Q6HR [facility] Last Admin: 07/15/19 05:47 Dose: 200 mls/hr Vancomycin HCl 1 gm/ Premix 200 mls @ 133.333 mls/hr IV Q12H [facility] Last Admin: 07/15/19 03:59 Dose: 133.333 mls/hr Levothyroxine Sodium (Levothyroxine) 125 mcg PO ACBREAKFAST [facility] Ondansetron HCl (Zofran) 4 mg IVPUSH Q4H PRN PRN Reason: Nausea/Vomiting Ondansetron HCl (Zofran Odt) 4 mg PO Q4H PRN PRN Reason: nausea, able to take PO Pantoprazole Sodium (Protonix) 40 mg PO BIDAC [facility] Last Admin: 07/15/19 05:46 Dose: 40 mg Prednisone (Prednisone) 10 mg PO DAILY [facility] Last Admin: 07/15/19 08:50 Dose: 10 mg Sodium Chloride (Saline Flush) 10 ml FLUSH ASDIRECTED PRN PRN Reason: Keep Vein Open Last Admin: 07/15/19 08:53 Dose: 10 ml Vancomycin HCl (Pharmacy To Dose - Vancomycin) 1 dose .XX ASDIRECTED [facility] Zolpidem Tartrate (Ambien) 5 mg PO BEDTIME PRN PRN Reason: Sleep Discontinued Medications Sodium Chloride (Normal Saline) 1,000 mls @ 999 mls/hr IV .BOLUS ONE Stop: 07/14/19 14:17 Last Admin: 07/14/19 13:30 Dose: 999 mls/hr Iopamidol (Isovue-370 (76%)) 100 ml IVPUSH ONETIME ONE Stop: 07/14/19 14:32 Last Admin: 07/14/19 15:16 Dose: 75 ml Levothyroxine Sodium (Levothyroxine) 125 mcg PO DAILY@0700 [facility] Last Admin: 07/15/19 06:31 Dose: 125 mcg - Exam General: Alert, Oriented Neck: Supple Lungs: Clear to Auscultation, Normal Respiratory Effort Cardiovascular: Regular Rate, Regular Rhythm GI/Abdominal Exam: Normal Bowel Sounds, Soft, Non-Tender Extremities: No Pedal Edema Sepsis Event Note - Evaluation Sepsis Screening Result: No Definite Risk - Focused Exam Vital Signs: Vital Signs Temp Pulse Resp BP Pulse Ox 07/15/19 01:29 37.0 C 70 18 115/69 100 Date Exam was Performed: 07/15/19 Time Exam was Performed: 10:59 - Problem List & Annotations (1) Chest pain SNOMED Code(s): 76461472 Code(s): R07.9 - CHEST PAIN, UNSPECIFIED Status: Acute Current Visit: No Qualifiers: Chest pain type: chest pain on breathing Qualified Code(s): R07.1 - Chest pain on breathing; R07.81 - Pleurodynia (2) Cough SNOMED Code(s): 82039539 Code(s): R05 - COUGH Status: Acute Current Visit: No - Problem List Review Problem List Initiated/Reviewed/Updated: Yes - My Orders Last 24 Hours: My Active Orders 07/14/19 15:45 Pharmacy to Dose - Vancomycin 1 dose .XX ASDIRECTED 07/14/19 16:00 Vancomycin/Water for INJ (PEG) [Vancomycin 1 GM/200 ML Premix] 1 gm Premix Bag 1 bag IV Q12H 07/14/19 16:12 CULTURE SPUTUM + SMEAR [RM] Routine 07/14/19 16:40 Peripheral IV Care [RC] Sodium Chloride 0.9% [Saline Flush] 10 ml FLUSH ASDIRECTED PRN Peripheral IV Insertion Adult [OM.PC] Routine 07/14/19 18:00 Flutter Valve Therapy [RT Chest Physiotherapy] [RC] ASDIRECTED IS (RT) [RT Incentive Spirometry] [RC] ASDIRECTED Piperacillin/Tazobactam [Zosyn] 3.375 gm Sodium Chloride 0.9% [Normal Saline] 100 ml IV Q6HR 07/14/19 19:20 Code Status [Resuscitation Status] Routine 07/14/19 19:21 Up ad Rebeca [RC] ASDIRECTED 07/14/19 21:00 Fluticasone Propionate [Flonase] 0 gm NASBOTH BID 07/14/19 21:29 Oxygen Therapy [RC] PRN VTE/DVT Education [RC] PER UNIT ROUTINE Vital Signs [RC] Q4H Acetaminophen [Tylenol] 650 mg PO Q4H PRN Ondansetron [Zofran ODT] 4 mg PO Q4H PRN Ondansetron [Zofran] 4 mg IVPUSH Q4H PRN Zolpidem [Ambien] 5 mg PO BEDTIME PRN Antiembolic Hose [OM.PC] Per Unit Routine 07/14/19 21:30 Antiembolic Devices [RC] PER UNIT ROUTINE 07/14/19 22:00 Heparin Sodium 5,000 units SUBCUT Q8HR 07/15/19 06:00 Pantoprazole [ProTONIX] 40 mg PO BIDAC 07/15/19 09:00 Cholecalciferol (Vitamin D3) [Vitamin D3] 25 mcg PO DAILY Folic Acid 1 mg PO DAILY predniSONE 10 mg PO DAILY 07/15/19 14:00 Dextromethorphan/guaiFENesin [Robitussin DM] 10 ml PO TID 07/15/19 17:00 TROPONIN I [CHEM] Timed 07/15/19 Breakfast Regular Diet [DIET] 07/16/19 03:30 VANCOMYCIN TROUGH [CHEM] Timed 07/16/19 06:00 Levothyroxine 125 mcg PO ACBREAKFAST - Plan Plan:: 58-year-old presented with right ear ache and drainage developing into symptoms of sinusitis and possibly bronchitis/pneumonia. Evaluate for sepsis normal repeat lactic acid Treat for possible infection the cause of sinusitis, bronchitis might be bacterial infection CT chest showed no pneumonia sputum culture pending blood culture: pending The patient has not improved with outpatient antibiotic courses of repeated Augmentin and azithromycin We will treat with vancomycin and Zosyn Other causes of dry cough might be sinus drainage, gastroesophageal reflux disease We will also use nasal steroid, PPI chest CT showed no abnormalities Chest pain is unlikely cardiac resolved History rheumatoid arthritis Continue prednisone hypokalemia will replace and recheck in AM DVT prophylaxis with subcutaneous heparin
[2019-07-15] MEDS: guaiFENesin/Dextromethorphan 100-10 MG/5 ML Soln 5 ML Cup PO SCH ×2 (13:10→22:19)
[2019-07-16] MEDS: Piperacillin/Tazobactam 3.375 GM in Sodium Chloride 0.9% 100 ML IV SCH ×5 (00:21→23:57)
[2019-07-16 04:22] LABS: ANION GAP 11.5; CHLORIDE,CL 108 mmol/L (101-111); SODIUM,NA 139 mmol/L (135-145)
[2019-07-16] MEDS ORDERED: VANCOMYCIN/WATER FOR INJ (PEG) 300 ML IV SCH (05:00)
[2019-07-16] MEDS: Heparin Sodium 5,000 Units/ML Vial SUBCUT SCH ×4 (06:16→23:28)
[2019-07-16] MEDS: Pantoprazole 40 MG Tab.CR PO SCH ×2 (06:16→16:33)
[2019-07-16] MEDS: Levothyroxine 125 MCG Tab PO SCH (06:16)
[2019-07-16] MEDS: guaiFENesin/Dextromethorphan 100-10 MG/5 ML Soln 5 ML Cup PO SCH ×3 (08:47→20:51)
[2019-07-16] MEDS: Cholecalciferol (Vitamin D3) 25 MCG Tab PO SCH (08:47)
[2019-07-16] MEDS: Folic Acid 1 MG Tab PO SCH (08:47)
[2019-07-16] MEDS: predniSONE 10 MG Tab PO SCH (08:47)
[2019-07-16] MEDS: Fluticasone Propionate Nasal Spray 16 GM Bottle NASBOTH SCH ×2 (08:49→20:50)
[2019-07-16] MEDS ORDERED: VANCOMYCIN/WATER FOR INJ (PEG) 1.5 GM in Premix Bag 1 BAG IV SCH (09:12)
[2019-07-16] MEDS: Sodium Chloride 0.9% 10 ML Syringe FLUSH PRN (12:19)
[2019-07-16] MEDS: Potassium Chloride 10 MEQ Tab.ER PO SCH ×2 (13:53→18:06)
--- NOTE | 2019-07-16 15:17 | PN ---
DATE: 07/16/2019 SUBJECTIVE: Mrs. Barbie Arauz is a 58-year-old female with a medical history significant for rheumatoid arthritis, admitted to the hospital with complaints of increasing shortness of breath and also upper respiratory tract symptoms and was admitted for possible sinusitis versus bronchitis/pneumonia. For the last 24 hours, the patient continues to have upper respiratory tract symptoms. She has some mild cough. Denies any chest pain. No shortness of breath. No abdominal pain. No nausea. No vomiting. No diarrhea. REVIEW OF SYSTEMS: Cardiovascular, respiratory, gastrointestinal, neurology, constitutional were all evaluated. PHYSICAL EXAMINATION: Vital Signs: Temperature of 97.4, pulse of 92, blood pressure 158/89, respiratory rate of 20, saturating at 98%. General Appearance: The patient is well oriented to time, place, and person. Follows commands spontaneously. Cardiovascular System: S1 and S2 heard with normal intensity. No gallops. Respiratory: Clear to auscultation bilaterally. No wheeze. No crepitations. Abdomen: Soft. Bowel sounds positive. Nontender. No rigidity. Extremities: No edema in bilateral lower extremities. MEDICATIONS: Reviewed. Continue the same. Continue with Flonase twice a day, nasal; folic acid 1 mg daily; heparin 5000 subcutaneous q.8 hourly; levothyroxine 125 mcg daily; Zosyn every 6 hourly; vancomycin. LABORATORY DATA: 1. WBC 9.9, hemoglobin 12, hematocrit 35.3, platelet count 242. 2. Sodium 139, potassium 3.5, chloride 108, BUN 12, creatinine 0.8. ASSESSMENT: 1. Possible pneumonia versus bronchitis. 2. Upper respiratory tract infection with sinusitis. 3. History of rheumatoid arthritis. PLAN: 1. Possible bronchitis/pneumonia. The patient is currently on broad-spectrum antibiotics. Her symptom seems to be improving. She remains afebrile. We will closely follow. The patient had a CT scan of the chest which showed no evidence of pneumonia. The patient has some cats at home with her granddaughter, so she is wondering if she is allergic to cat dandruff, but she is advised to follow with irrigation installation specialist as an outpatient if she has recurrence of her symptoms. 2. History of rheumatoid arthritis. Continue with prednisone. 3. Hypokalemia. The patient continues to have low potassium. Continue with oral potassium chloride. 4. DVT prophylaxis. Continue with heparin for DVT prophylaxis. [facility] /[id number]
[2019-07-16] MEDS: VANCOMYCIN/WATER FOR INJ (PEG) 1.5 GM in Premix Bag 1 BAG IV SCH (16:33)
[2019-07-17] MEDS: Heparin Sodium 5,000 Units/ML Vial SUBCUT SCH (05:37)
[2019-07-17] MEDS: VANCOMYCIN/WATER FOR INJ (PEG) 1.5 GM in Premix Bag 1 BAG IV SCH (05:37)
[2019-07-17] MEDS: Levothyroxine 125 MCG Tab PO SCH (05:38)
[2019-07-17] MEDS: Pantoprazole 40 MG Tab.CR PO SCH (05:38)
[2019-07-17] MEDS: Piperacillin/Tazobactam 3.375 GM in Sodium Chloride 0.9% 100 ML IV SCH (07:20)
[2019-07-17] MEDS: Sodium Chloride 0.9% 10 ML Syringe FLUSH PRN (07:22)
[2019-07-17 08:23] VITALS: BP 128/78; PULSE 78
[2019-07-17] MEDS: Cholecalciferol (Vitamin D3) 25 MCG Tab PO SCH (08:50)
[2019-07-17] MEDS: Folic Acid 1 MG Tab PO SCH (08:50)
[2019-07-17] MEDS: Potassium Chloride 10 MEQ Tab.ER PO SCH (08:50)
[2019-07-17] MEDS: Fluticasone Propionate Nasal Spray 16 GM Bottle NASBOTH SCH (08:51)
[2019-07-17] MEDS: predniSONE 10 MG Tab PO SCH (08:51)
[2019-07-17] MEDS: guaiFENesin/Dextromethorphan 100-10 MG/5 ML Soln 5 ML Cup PO SCH (08:52)
--- NOTE | 2019-07-17 13:21 | DISCH ---
ADMITTING DIAGNOSES: Possible bronchitis, possible sinusitis. DISCHARGE DIAGNOSES: 1. Possible bronchitis, treated with IV antibiotics. 2. Possible sinusitis, improved. 3. Upper respiratory tract infection with sinusitis. 4. Chronic history of rheumatoid arthritis. 5. Hypokalemia. HISTORY OF PRESENTING ILLNESS: Ms. Barbie Arauz is a 58-year-old female with medical history significant for rheumatoid arthritis, admitted with complaints of increasing shortness of breath and also upper respiratory tract symptoms and was noted to have possible sinusitis versus bronchitis versus pneumonia. The patient was admitted and was started on broad-spectrum antibiotic with Zosyn and vancomycin. The patient had a CT scan of the chest, which did not show any evidence of pneumonia. The patient responded well to the treatment. The patient was noted to have hypokalemia requiring oral potassium chloride supplement. She had a potassium of 3.5 on this admission requiring oral potassium chloride. She responded well to the treatment. So far, her cultures remained negative. She is switched to oral Augmentin at the time of discharge. She is discharged home in stable condition. She is advised to follow with her primary care physician in the next 1 week of time and she is advised to follow with the ENT specialist if she continues to have recurrent sinus infections especially given her chronic steroid therapy and chronic immunosuppressant therapy, which she understands and verbalized the same. DISCHARGE MEDICATIONS: 1. Augmentin 1 tablet 3 times a day for next 5 days. 2. Vitamin D3 1 tablet daily. 3. Folic acid 1 mg daily. 4. Levothyroxine 125 mcg daily. 5. Methotrexate 7.5 mg 3 tablets every Sunday. 6. Tocilizumab 162 mg subcutaneous every 2 weeks. 7. Prednisone 10 mg daily. PHYSICAL EXAMINATION ON THE DAY OF DISCHARGE: Vital Signs: Temperature of 97.4, pulse of 78, blood pressure 128/78, respiratory rate of 20, saturating at 100% on room air. General Appearance: Patient is well oriented to time, place, and person. Follows commands spontaneously. Cardiovascular System: S1, S2 heard with normal intensity. No gallops. Respiratory System: Clear to auscultation bilaterally. No wheeze. No crepitations. Abdomen: Soft. Bowel sounds positive. Nontender. No rigidity. Extremities: No edema, bilateral lower extremities. Neurology: No gross focal neurological deficit. CONDITION ON ADMISSION: Poor. CONDITION ON DISCHARGE: Stable. ACTIVITY: As tolerated. DIET: Regular diet. Follow with primary care physician in the next 1 week of time. Spent over 35 minutes of time in evaluating and treating the patient and making discharge plan. [facility] /[id number] MTDD
== END 2019-07-17 12:10 | disposition home or self-care (01) | DRG 872 ==
LOC: DL.ED 12:22 → DL.MS 15:14
PROVIDERS: ADMIT Internal Medicine; ATTEND Internal Medicine
DX: R07.81 Pleurodynia (principal); R07.1 Chest pain on breathing; R05 Cough; A41.9 Sepsis, unspecified organism; J40 Bronchitis, not specified as acute or chronic; K52.9 Noninfective gastroenteritis and colitis, unspecified; M79.7 Fibromyalgia; E87.6 Hypokalemia; M06.9 Rheumatoid arthritis, unspecified; J01.90 Acute sinusitis, unspecified; L50.9 Urticaria, unspecified; E78.00 Pure hypercholesterolemia, unspecified; K59.09 Other constipation; F32.9 Major depressive disorder, single episode, unspecified; E03.9 Hypothyroidism, unspecified; Z87.01 Personal history of pneumonia (recurrent); Z91.048 Other nonmedicinal substance allergy status; D64.9 Anemia, unspecified; K21.9 Gastro-esophageal reflux disease without esophagitis; Z88.8 Allergy status to other drugs, medicaments and biological substances; Z79.890 Hormone replacement therapy; Z79.52 Long term (current) use of systemic steroids; Z79.899 Other long term (current) drug therapy; Z98.49 Cataract extraction status, unspecified eye; Z88.1 Allergy status to other antibiotic agents
CPT/HCPCS: 36415; 71046; 80053; 80305; 81001; 83605; 84484; 85025; 87040; 93005; 96360; 99284; 99285; J7030; 71260; 80048; 80202; 94010; 94667; A9270-GY; J1644; J2543; J3370; J7050; Q9967

== ENCOUNTER 2020-03-26 11:37 | Emergency (ER) | payer MEDICAID, OTHER ==
[2020-03-26] MEDS ORDERED: Metoprolol Tartrate 25 MG Tab PO ONE (12:54)
--- NOTE | 2020-03-26 13:27 | EDM.PDOC ---
ED HPI GENERAL MEDICAL PROBLEM - General Chief Complaint: General Stated Complaint: [id number] HIGH BLOOD PRESSURE Time Seen by Provider: 03/26/20 12:52 Source of Information: Reports: Patient, RN, RN Notes Reviewed History Limitations: Reports: No Limitations - History of Present Illness INITIAL COMMENTS - FREE TEXT/NARRATIVE: Patient presents to ER with complaint of high blood pressure. Patient states she has had high blood pressure in the past, [facility] and [facility]. Patient does not currently take anything for high blood pressure. Today was at the dentist where they took her blood pressure and it was quite high, 180s over 110's. Patient states she has a history of anxiety as well. Patient states she feels as though her heart rate is very fast. Denies chest pains or shortness of breath. States she has had a headache for the past few days, but has also had some sinus problems for which she attributed the headache. Onset: Today, Gradual - Related Data Allergies Allergy/AdvReac Type Severity Reaction Status Date / Time cetirizine [From Zyrtec] Allergy Chest Pain Verified 03/26/20 11:49 escitalopram oxalate Allergy Cannot Verified 03/26/20 11:49 [From Lexapro] Remember sertraline HCl [From Zoloft] Allergy Cannot Verified 03/26/20 11:49 Remember Home Meds: Home Meds Levothyroxine Sodium [Tirosint] 125 mcg PO DAILY 01/05/14 [History] Triamcinolone Acetonide [Triamcinolone Acetonide 0.1% Crm] 1 applic TOP QID PRN 09/09/15 [History] Cholecalciferol (Vitamin D3) [Vitamin D3] 1 tab PO DAILY 09/30/15 [History] Folic Acid 1 mg PO DAILY 07/14/19 [History] Methotrexate 7.5 mg PO .EVERYFRIDAY 07/14/19 [History] Tocilizumab [Actemra] 162 mg SQ .[id number] 07/14/19 [History] predniSONE [Prednisone] 5 mg PO DAILY 07/14/19 [History] Fluticasone Propionate [Flonase Allergy Relief] 1 spray NASBOTH BID 03/26/20 [History] Lactobacillus Acidophilus [Acidophilus Lactobacilli] 1 cap PO DAILY 03/26/20 [History] Past Medical History HEENT History: Reports: Cataract, Sinusitis Cardiovascular History: Reports: High Cholesterol Respiratory History: Reports: Bronchitis, Recurrent, Pneumonia, Recurrent Gastrointestinal History: Reports: Chronic Constipation, Chronic Diarrhea Genitourinary History: Reports: None 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: Musculoskeletal History: Reports: Fibromyalgia Other Musculoskeletal History: muscle aches Neurological History: Reports: None Psychiatric History: Reports: Depression Endocrine/Metabolic History: Reports: Hypothyroidism Hematologic History: Reports: Anemia Immunologic History: Reports: None Oncologic (Cancer) History: Reports: None Dermatologic History: Reports: Urticaria, Other (See Below) Other Dermatologic History: ALLERGIC TO SUNLIGHT - Infectious Disease History Infectious Disease History: Reports: Chicken Pox, Mumps - Past Surgical History HEENT Surgical History: Reports: None Social & Family History - Family History Family Medical History: Noncontributory - Tobacco Use Smoking Status *Q: Former Smoker Years of Tobacco use: 30 Packs/Tins Daily: 1 Used Tobacco, but Quit: Yes Month/Year Tobacco Last Used: august Hand Smoke Exposure: No - Caffeine Use Caffeine Use: Reports: Coffee, Tea - Recreational Drug Use Recreational Drug Use: No - Living Situation & Occupation Living situation: Reports: with Family ED ROS GENERAL - Review of Systems Review Of Systems: Comprehensive ROS is negative, except as noted in HPI. ED EXAM, GENERAL - Physical Exam Exam: See Below Exam Limited By: No Limitations General Appearance: Alert, WD/WN, Anxious, Mild Distress Eye Exam: Bilateral Eye: EOMI, Normal Inspection Ears: Normal External Exam, Hearing Grossly Normal Nose: Normal Inspection Throat/Mouth: Normal Inspection, Normal Voice, No Airway Compromise Head: Atraumatic, Normocephalic Neck: Normal Inspection, Supple, Non-Tender, Full Range of Motion Respiratory/Chest: No Respiratory Distress, No Accessory Muscle Use, Chest Non- Tender, Decreased Breath Sounds Cardiovascular: Normal Peripheral Pulses, Regular Rate, Rhythm, No Edema, No Gallop, No JVD, No Murmur, No Rub, Tachycardia Peripheral Pulses: 2+: Radial (L), Radial (R) GI/Abdominal: Normal Bowel Sounds, Soft, Non-Tender (Female) Exam: Deferred Rectal (Female) Exam: Deferred Back Exam: Normal Inspection, Full Range of Motion, NT Extremities: Normal Inspection, Normal Range of Motion, Non-Tender, Normal Capillary Refill, No Pedal Edema Neurological: Alert, Oriented, CN II-XII Intact, Normal Cognition, Normal Gait, Normal Reflexes, No Motor/Sensory Deficits Psychiatric: Anxious, Tearful Skin Exam: Warm, Dry, Intact, Normal Color, No Rash Lymphatic: No Adenopathy Course - Vital Signs Last Recorded V/S: Last Vital Signs Temp 97.6 F 03/26/20 11:44 Pulse 110 H 03/26/20 14:07 Resp 16 03/26/20 11:44 BP 146/99 H 03/26/20 14:07 Pulse Ox 99 03/26/20 11:44 - Orders/Labs/Meds Labs: Laboratory Tests 03/26/20 03/26/20 Range/Units 13:05 13:05 WBC 7.5 (5.0-10.0) 10^3/uL RBC 4.69 (4.2-5.4) 10^6/uL Hgb 15.1 D (12.0-16.0) g/dL Hct 43.7 (37.0-47.0) % MCV 93.2 D (80-100) fL MCH 32.2 (27.0-34.0) pg MCHC 34.6 (33.0-35.0) g/dL Plt Count 257 (150-450) 10^3/uL Neut % (Auto) 77.5 H (42.2-75.2) % Lymph % (Auto) 17.3 L (20.5-50.1) % [place] % (Auto) 4.3 (2-8) % Eos % (Auto) 0.8 L (1.0-3.0) % Baso % (Auto) 0.1 (0.0-1.0) % Sodium 142 (136-145) mmol/L Potassium 4.1 (3.5-5.1) mmol/L Chloride 105 (98-107) mmol/L Carbon Dioxide 23 (21-32) mmol/L Anion Gap 18.1 H (7-13) mEq/L BUN 9 (7-18) mg/dL Creatinine 0.95 (0.55-1.02) mg/dL Est Cr Clr Drug Dosing 58.95 mL/min Estimated GFR (MDRD) > 60 BUN/Creatinine Ratio 9.5 (No establ ref range) Glucose 116 H (74-99) mg/dL Calcium 9.1 (8.5-10.1) mg/dL Total Bilirubin 0.6 (0.2-1.0) mg/dL AST 25 (15-37) U/L ALT 50 (14-59) U/L Alkaline Phosphatase 69 (46-116) U/L Total Protein 7.7 (6.4-8.2) g/dL Albumin 4.5 (3.4-5.0) g/dL Globulin 3.2 Albumin/Globulin Ratio 1.4 Meds: Medications Discontinued Medications Generic Name Dose Route Start Last Admin Trade Name Princess PRN Reason Stop Dose Admin Lorazepam 0.5 mg 03/26/20 13:52 03/26/20 14:06 Ativan PO 03/26/20 13:53 0.5 mg ONETIME ONE Administration Metoprolol Tartrate 25 mg 03/26/20 12:54 03/26/20 13:06 Lopressor PO 03/26/20 12:55 25 mg ONETIME ONE Administration - Re-Assessments/Exams Free Text/Narrative Re-Assessment/Exam: 03/26/20 14:[address] to set up an appointment. Departure - Departure Time of Disposition: 14:31 Disposition: Home, Self-Care 01 Condition: Fair Clinical Impression: Anxiety Hypertension Qualifiers: Hypertension type: essential hypertension Qualified Code(s): I10 - Essential (primary) hypertension - Discharge Information *PRESCRIPTION DRUG MONITORING PROGRAM REVIEWED*: No *COPY OF PRESCRIPTION DRUG MONITORING REPORT IN PATIENT ELE: No Instructions: Hypertension, Adult, [id number], Living With Anxiety Forms: ED Department Discharge Additional Instructions: Rx: Metoprolol, lorazepam [facility] Return to the ER with any worsening of problems Sepsis Event Note (ED) - Evaluation Sepsis Screening Result: No Definite Risk - Focused Exam Vital Signs: Vital Signs Temp Pulse Pulse Resp BP BP Pulse Ox 03/26/20 14:07 110 H 146/99 H 03/26/20 13:06 122 H 160/111 H 03/26/20 11:55 145/93 H 03/26/20 11:44 97.6 F 124 H 16 177/107 H 99
[2020-03-26 13:40] LABS: ANION GAP 18.1 mEq/L (7-13); CHLORIDE,CL 105 mmol/L (98-107); SODIUM,NA 142 mmol/L (136-145)
[2020-03-26] MEDS ORDERED: LORazepam 0.5 MG Tab PO ONE (13:52)
[2020-03-26 14:08] VITALS: BP 146/99; PULSE 110
== END 2020-03-26 14:43 | disposition home or self-care (01) ==
LOC: DL.ED 11:37
DX: I10 Essential (primary) hypertension (principal); F41.9 Anxiety disorder, unspecified; E03.9 Hypothyroidism, unspecified; Z87.891 Personal history of nicotine dependence; Z88.1 Allergy status to other antibiotic agents; Z88.8 Allergy status to other drugs, medicaments and biological substances; Z79.899 Other long term (current) drug therapy
CPT/HCPCS: 36415; 80053; 85025; 99283; A9270

== ENCOUNTER 2020-03-28 13:41 | Emergency (ER) | payer MEDICAID, OTHER ==
[2020-03-28 14:02] VITALS: BP 117/81; PULSE 75
[2020-03-28 15:17] LABS: ANION GAP 13.2 mEq/L (7-13); CHLORIDE,CL 105 mmol/L (98-107); SODIUM,NA 141 mmol/L (136-145)
--- NOTE | 2020-03-28 16:06 | EDM.PDOC ---
Scribed by Deedee Perez 03/28/20 [id number] for Fabiola Aguiar MD ED HPI GENERAL MEDICAL PROBLEM - General Chief Complaint: General Stated Complaint: DIZZY FAINTNESS SORE MUSCLES Time Seen by Provider: 03/28/20 14:30 Source of Information: Reports: Patient, RN, RN Notes Reviewed History Limitations: Reports: No Limitations - History of Present Illness INITIAL COMMENTS - FREE TEXT/NARRATIVE: Patient presents to ED because she is not feeling well. She woke up this morning with body aches and fatigue. She correlates this to wearing a weighted blanket. Patient was recently in the emergency department for elevated blood pressure and was given medication to bring her blood pressure down. Patient notes her blood pressure has been normal. Patient denies any cough or any signs of infection. She has not been exposed to anyone who has been sick, that she is aware of. No fevers or chills. Onset: Gradual Severity: Moderate Improves with: Reports: None Worsens with: Reports: None Associated Symptoms: Reports: No Other Symptoms Bilateral Arm Pain Score (Numeric/FACES): 1 - Related Data Allergies Allergy/AdvReac Type Severity Reaction Status Date / Time cetirizine [From Zyrtec] Allergy Chest Pain Verified 03/28/20 14:02 escitalopram oxalate Allergy Cannot Verified 03/28/20 14:02 [From Lexapro] Remember sertraline HCl [From Zoloft] Allergy Cannot Verified 03/28/20 14:02 Remember Home Meds: Home Meds Levothyroxine Sodium [Tirosint] 125 mcg PO DAILY 01/05/14 [History] Triamcinolone Acetonide [Triamcinolone Acetonide 0.1% Crm] 1 applic TOP QID PRN 09/09/15 [History] Cholecalciferol (Vitamin D3) [Vitamin D3] 1 tab PO DAILY 09/30/15 [History] Folic Acid 1 mg PO DAILY 07/14/19 [History] Methotrexate 7.5 mg PO .EVERYFRIDAY 07/14/19 [History] Tocilizumab [Actemra] 162 mg SQ .[id number] 07/14/19 [History] predniSONE [Prednisone] 5 mg PO DAILY 07/14/19 [History] Fluticasone Propionate [Flonase Allergy Relief] 1 spray NASBOTH BID 03/26/20 [History] Lactobacillus Acidophilus [Acidophilus Lactobacilli] 1 cap PO DAILY 03/26/20 [History] Metoprolol Tartrate 25 mg PO DAILY 03/28/20 [History] Past Medical History HEENT History: Reports: Cataract, Sinusitis Cardiovascular History: Reports: High Cholesterol, Hypertension Respiratory History: Reports: Bronchitis, Recurrent, Pneumonia, Recurrent Gastrointestinal History: Reports: Chronic Constipation, Chronic Diarrhea Genitourinary History: Reports: None 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: Musculoskeletal History: Reports: Fibromyalgia Other Musculoskeletal History: muscle aches Neurological History: Reports: None Psychiatric History: Reports: Depression Endocrine/Metabolic History: Reports: Hypothyroidism Hematologic History: Reports: Anemia Immunologic History: Reports: None Oncologic (Cancer) History: Reports: None Dermatologic History: Reports: Urticaria, Other (See Below) Other Dermatologic History: ALLERGIC TO SUNLIGHT - Infectious Disease History Infectious Disease History: Reports: Chicken Pox, Mumps - Past Surgical History Head Surgeries/Procedures: Reports: None HEENT Surgical History: Reports: None Social & Family History - Family History Family Medical History: Noncontributory - Tobacco Use Smoking Status *Q: Never Smoker Second Hand Smoke Exposure: No - Caffeine Use Caffeine Use: Reports: Coffee, Tea - Recreational Drug Use Recreational Drug Use: No - Living Situation & Occupation Living situation: Reports: with Family ED ROS GENERAL - Review of Systems Review Of Systems: Comprehensive ROS is negative, except as noted in HPI. ED EXAM, GENERAL - Physical Exam Exam: See Below Exam Limited By: No Limitations General Appearance: Alert, WD/WN, No Apparent Distress Eye Exam: Bilateral Eye: Normal Inspection Ears: Normal External Exam Nose: Normal Inspection Throat/Mouth: Normal Inspection Head: Atraumatic Neck: Normal Inspection Respiratory/Chest: No Respiratory Distress, Lungs Clear, Normal Breath Sounds, No Accessory Muscle Use, Chest Non-Tender Cardiovascular: Normal Peripheral Pulses, Regular Rate, Rhythm, No Edema, No Gallop, No JVD, No Murmur, No Rub GI/Abdominal: Normal Bowel Sounds, Soft, Non-Tender, No Organomegaly, No Distention, No Abnormal Bruit, No Mass (Female) Exam: Deferred Rectal (Female) Exam: Deferred Back Exam: Normal Inspection, Full Range of Motion, NT Extremities: Normal Inspection, Normal Range of Motion, Non-Tender, Normal Capillary Refill, No Pedal Edema Neurological: Alert, Oriented, CN II-XII Intact, Normal Cognition, Normal Gait, Normal Reflexes, No Motor/Sensory Deficits Psychiatric: Normal Affect, Normal Mood Skin Exam: Warm, Dry, Intact, Normal Color, No Rash Lymphatic: No Adenopathy Course - Vital Signs Last Recorded V/S: Last Vital Signs Temp 96.6 F L 03/28/20 13:51 Pulse 75 03/28/20 13:51 Resp 16 03/28/20 13:51 BP 117/81 03/28/20 13:51 Pulse Ox 99 03/28/20 13:51 - Orders/Labs/Meds Orders: Active Orders 24 hr Category Date Time Status EKG Documentation Completion [RC] STAT Care 03/28/20 14:33 Ordered UA RFX BERNARDO AND CULT IF INDIC [URIN] Stat Lab 03/28/20 14:34 Ordered Labs: Laboratory Tests 03/28/20 03/28/20 03/28/20 Range/Units 14:41 14:41 14:41 WBC 7.7 (5.0-10.0) 10^3/uL RBC 4.58 (4.2-5.4) 10^6/uL Hgb 14.8 (12.0-16.0) g/dL Hct 43.2 (37.0-47.0) % MCV 94.3 (80-100) fL MCH 32.3 (27.0-34.0) pg MCHC 34.3 (33.0-35.0) g/dL Plt Count 240 (150-450) 10^3/uL Neut % (Auto) 75.5 H (42.2-75.2) % Lymph % (Auto) 18.8 L (20.5-50.1) % [place] % (Auto) 4.0 (2-8) % Eos % (Auto) 1.6 (1.0-3.0) % Baso % (Auto) 0.1 (0.0-1.0) % Sodium 141 (136-145) mmol/L Potassium 4.2 (3.5-5.1) mmol/L Chloride 105 (98-107) mmol/L Carbon Dioxide 27 (21-32) mmol/L Anion Gap 13.2 H (7-13) mEq/L BUN 8 (7-18) mg/dL Creatinine 0.83 (0.55-1.02) mg/dL Est Cr Clr Drug Dosing 67.48 mL/min Estimated GFR (MDRD) > 60 BUN/Creatinine Ratio 9.6 (No establ ref range) Glucose 101 H (74-99) mg/dL Lactic Acid 0.9 (0.4-2.0) mmol/L Calcium 8.9 (8.5-10.1) mg/dL Total Bilirubin 0.6 (0.2-1.0) mg/dL AST 20 (15-37) U/L ALT 47 (14-59) U/L Alkaline Phosphatase 65 (46-116) U/L Troponin I < 0.017 (0.000-0.056) ng/mL Total Protein 7.3 (6.4-8.2) g/dL Albumin 4.3 (3.4-5.0) g/dL Globulin 3.0 Albumin/Globulin Ratio 1.4 Departure - Departure Time of Disposition: 16:03 Disposition: Home, Self-Care 01 Condition: Good Clinical Impression: Fatigue Qualifiers: Fatigue type: unspecified Qualified Code(s): R53.83 - Other fatigue - Discharge Information Instructions: Fatigue Forms: ED Department Discharge Additional Instructions: If your symptoms worsen or continue, return to the emergency room. 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 Sepsis Event Note (ED) - Evaluation Sepsis Screening Result: No Definite Risk - Focused Exam Vital Signs: Vital Signs Temp Pulse Resp BP Pulse Ox 03/28/20 13:51 96.6 F L 75 16 117/81 99 - My Orders Last 24 Hours: My Active Orders 03/28/20 14:33 EKG Documentation Completion [RC] STAT 03/28/20 14:34 UA RFX BERNARDO AND CULT IF INDIC [URIN] Stat - Assessment/Plan Last 24 Hours: My Active Orders 03/28/20 14:33 EKG Documentation Completion [RC] STAT 03/28/20 14:34 UA RFX BERNARDO AND CULT IF INDIC [URIN] Stat I have read and agree with the documentation that has been completed regarding this visit. By signing this record, I attest that the documentation was completed in my physical presence and is an accurate record of the encounter.
== END 2020-03-28 16:10 | disposition home or self-care (01) ==
LOC: DL.ED 13:41
DX: R53.83 Other fatigue (principal); E78.00 Pure hypercholesterolemia, unspecified; I10 Essential (primary) hypertension; E03.9 Hypothyroidism, unspecified; Z88.8 Allergy status to other drugs, medicaments and biological substances; Z79.899 Other long term (current) drug therapy
CPT/HCPCS: 36415; 80053; 83605; 84484; 85025; 99283-25

== ENCOUNTER 2021-02-12 18:25 | Emergency (ER) | payer BC, MEDICAID, OTHER ==
[2021-02-12 19:07] VITALS: BP 125/73; PULSE 93
[2021-02-12] MEDS ORDERED: Aspirin 81 MG Tab.Chew PO ONE (19:13)
--- NOTE | 2021-02-12 19:28 | EDM.PDOC ---
ED HPI GENERAL MEDICAL PROBLEM - General Chief Complaint: Chest Pain Stated Complaint: CHEST PAIN Time Seen by Provider: 02/12/21 19:25 Source of Information: Reports: Patient, RN History Limitations: Reports: No Limitations - History of Present Illness INITIAL COMMENTS - FREE TEXT/NARRATIVE: ED multiple c/o, nausea chest pressure headache back of neck, feeling weak, intermittent chest pressure, no fever, left eye feels dry onset today. Floaters present left eye - chronic. No SOB. Similar flare in Stills dz 3 weeks ago. Had medrol dose pack and only took a couple days and felt better. Hasn't tried tylenol becccccccause hx elevated LFT's. - Related Data Allergies Allergy/AdvReac Type Severity Reaction Status Date / Time cetirizine [From Zyrtec] Allergy Chest Pain Verified 02/12/21 19:33 escitalopram oxalate Allergy Cannot Verified 02/12/21 19:33 [From Lexapro] Remember sertraline HCl [From Zoloft] Allergy Cannot Verified 02/12/21 19:33 Remember Home Meds: Home Meds Levothyroxine Sodium [Tirosint] 125 mcg PO DAILY 01/05/14 [History] Triamcinolone Acetonide [Triamcinolone Acetonide 0.1% Crm] 1 applic TOP QID PRN 09/09/15 [History] Cholecalciferol (Vitamin D3) [Vitamin D3] 1 tab PO DAILY 09/30/15 [History] Folic Acid 1 mg PO DAILY 07/14/19 [History] Methotrexate 7.5 mg PO .EVERYFRIDAY 07/14/19 [History] Tocilizumab [Actemra] 162 mg SQ .[id number] 07/14/19 [History] Fluticasone Propionate [Flonase Allergy Relief] 1 spray NASBOTH BID 03/26/20 [History] Lactobacillus Acidophilus [Acidophilus Lactobacilli] 1 cap PO DAILY 03/26/20 [History] hydroCHLOROthiazide [Hydrochlorothiazide] 1 cap PO DAILY 02/12/21 [History] Past Medical History HEENT History: Reports: Cataract, Sinusitis Cardiovascular History: Reports: High Cholesterol, Hypertension Respiratory History: Reports: Bronchitis, Recurrent, Pneumonia, Recurrent Gastrointestinal History: Reports: Chronic Constipation, Chronic Diarrhea Genitourinary History: Reports: None 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: Musculoskeletal History: Reports: Fibromyalgia Other Musculoskeletal History: muscle aches Neurological History: Reports: None Psychiatric History: Reports: Depression Endocrine/Metabolic History: Reports: Hypothyroidism Hematologic History: Reports: Anemia Immunologic History: Reports: None Oncologic (Cancer) History: Reports: None Dermatologic History: Reports: Urticaria, Other (See Below) Other Dermatologic History: ALLERGIC TO SUNLIGHT - Infectious Disease History Infectious Disease History: Reports: Chicken Pox, Mumps - Past Surgical History Head Surgeries/Procedures: Reports: None HEENT Surgical History: Reports: None Social & Family History - Family History Family Medical History: No Pertinent Family History - Caffeine Use Caffeine Use: Reports: Coffee, Tea - Living Situation & Occupation Living situation: Reports: with Family ED ROS GENERAL - Review of Systems Review Of Systems: Comprehensive ROS is negative, except as noted in HPI. ED EXAM, GENERAL - Physical Exam Exam: See Below Exam Limited By: No Limitations General Appearance: Alert, No Apparent Distress Eye Exam: Bilateral Eye: EOMI, PERRL Ears: Normal External Exam, Hearing Grossly Normal Nose: Normal Inspection Throat/Mouth: Normal Inspection, Normal Voice Head: Atraumatic, Normocephalic Respiratory/Chest: No Respiratory Distress, Lungs Clear, Normal Breath Sounds Cardiovascular: Normal Peripheral Pulses, Regular Rate, Rhythm, No Edema GI/Abdominal: Normal Bowel Sounds, Soft, Non-Tender Extremities: Normal Inspection, Normal Range of Motion Neurological: Alert, Oriented, Normal Cognition, Normal Reflexes, No Mo tor/Sensory Deficits Psychiatric: Flat Affect Skin Exam: Warm, Dry, Intact, Normal Color #1 Interpretation EKG Date: 02/12/21 Time: 18:54 Rhythm: NSR Rate (Beats/Min): 93 [place]: Normal P-Wave: Present ST-T: Normal QT: Normal Comparison: No Change Course - Vital Signs Last Recorded V/S: Last Vital Signs Temp 97.4 F 02/12/21 19:01 Pulse 93 02/12/21 19:01 Resp 18 02/12/21 19:01 BP 125/73 02/12/21 19:01 Pulse Ox 97 02/12/21 19:01 - Orders/Labs/Meds Orders: Active Orders 24 hr Category Date Time Status UA W/MICROSCOPIC [URIN] Stat Lab 02/12/21 19:13 Ordered Labs: Laboratory Tests 02/12/21 02/12/21 02/12/21 Range/Units 19:20 19:20 19:20 WBC 6.3 (5.0-10.0) 10^3/uL RBC 4.16 L (4.2-5.4) 10^6/uL Hgb 14.1 (12.0-16.0) g/dL Hct 40.2 (37.0-47.0) % MCV 96.6 (80-100) fL MCH 33.9 (27.0-34.0) pg MCHC 35.1 H (33.0-35.0) g/dL Plt Count 203 (150-450) 10^3/uL Neut % (Auto) 48.1 (42.2-75.2) % Lymph % (Auto) 38.5 (20.5-50.1) % [place] % (Auto) 10.0 H (2-8) % Eos % (Auto) 3.2 H (1.0-3.0) % Baso % (Auto) 0.2 (0.0-1.0) % PT 11.0 (9.0-12.0) SEC INR 1.1 (0.9-1.2) D-Dimer, Quantitative < 100 (0-400) ng/mL Sodium 142 (136-145) mmol/L Potassium 3.5 (3.5-5.1) mmol/L Chloride 103 (98-107) mmol/L Carbon Dioxide 29 (21-32) mmol/L Anion Gap 13.5 H (7-13) mEq/L BUN 10 (7-18) mg/dL Creatinine 0.79 (0.55-1.02) mg/dL Est Cr Clr Drug Dosing 70.01 mL/min Estimated GFR (MDRD) > 60 BUN/Creatinine Ratio 12.7 (No establ ref range) Glucose 107 H (70-99) mg/dL Calcium 8.5 (8.5-10.1) mg/dL Magnesium 2.0 (1.8-2.4) mg/dL Total Bilirubin 0.4 (0.2-1.0) mg/dL AST 36 (15-37) U/L ALT 92 H (14-59) U/L Alkaline Phosphatase 85 (46-116) U/L Troponin I High Sens 10 (<=51) pg/mL C-Reactive Protein (0.0-0.9) mg/dL B-Natriuretic Peptide 9 (0-100) pg/ml Total Protein 6.7 (6.4-8.2) g/dL Albumin 3.9 (3.4-5.0) g/dL Globulin 2.8 Albumin/Globulin Ratio 1.4 Amylase 38 (25-115) U/L TSH, Ultra Sensitive (0.36-3.74) uIU/mL 02/12/21 Range/Units 19:20 WBC (5.0-10.0) 10^3/uL RBC (4.2-5.4) 10^6/uL Hgb (12.0-16.0) g/dL Hct (37.0-47.0) % MCV (80-100) fL MCH (27.0-34.0) pg MCHC (33.0-35.0) g/dL Plt Count (150-450) 10^3/uL Neut % (Auto) (42.2-75.2) % Lymph % (Auto) (20.5-50.1) % [place] % (Auto) (2-8) % Eos % (Auto) (1.0-3.0) % Baso % (Auto) (0.0-1.0) % PT (9.0-12.0) SEC INR (0.9-1.2) D-Dimer, Quantitative (0-400) ng/mL Sodium (136-145) mmol/L Potassium (3.5-5.1) mmol/L Chloride (98-107) mmol/L Carbon Dioxide (21-32) mmol/L Anion Gap (7-13) mEq/L BUN (7-18) mg/dL Creatinine (0.55-1.02) mg/dL Est Cr Clr Drug Dosing mL/min Estimated GFR (MDRD) BUN/Creatinine Ratio (No establ ref range) Glucose (70-99) mg/dL Calcium (8.5-10.1) mg/dL Magnesium (1.8-2.4) mg/dL Total Bilirubin (0.2-1.0) mg/dL AST (15-37) U/L ALT (14-59) U/L Alkaline Phosphatase (46-116) U/L Troponin I High Sens (<=51) pg/mL C-Reactive Protein < 0.2 (0.0-0.9) mg/dL B-Natriuretic Peptide (0-100) pg/ml Total Protein (6.4-8.2) g/dL Albumin (3.4-5.0) g/dL Globulin Albumin/Globulin Ratio Amylase (25-115) U/L TSH, Ultra Sensitive 3.76 H (0.36-3.74) uIU/mL Meds: Medications Discontinued Medications Generic Name Dose Route Start Last Admin Trade Name Princess PRN Reason Stop Dose Admin Aspirin 324 mg 02/12/21 19:13 02/12/21 19:28 Aspirin 81 Mg Tab.Chew PO 02/12/21 19:14 324 mg ONETIME ONE Administration - Re-Assessments/Exams Free Text/Narrative Re-Assessment/Exam: 02/12/21 20:36 SX improved, feeling only tired. Reports has prednisone at home to use with flares but has not used. LFT are reasonable today that she could use tylenol sparingly to manage symptoms. Instructed to return if worsening sx but to follow with eye clinic and PCP next week for chronic issues Departure - Departure Time of Disposition: 20:15 Disposition: Home, Self-Care 01 Condition: Good Clinical Impression: Malaise and fatigue, Still's disease of adult - Discharge Information *PRESCRIPTION DRUG MONITORING PROGRAM REVIEWED*: No *COPY OF PRESCRIPTION DRUG MONITORING REPORT IN PATIENT ELE: No Instructions: Nonspecific Chest Pain, Adult, [id number] Forms: ED Department Discharge Additional Instructions: clinic follow up next week increase fluids rest follow up if symptoms worsen eye clinic next week Sepsis Event Note (ED) - Evaluation Sepsis Screening Result: No Definite Risk - Focused Exam Vital Signs: Vital Signs Temp Pulse Resp BP Pulse Ox 02/12/21 19:01 97.4 F 93 18 125/73 97 - My Orders Last 24 Hours: My Active Orders 02/12/21 19:13 UA W/MICROSCOPIC [URIN] Stat - Assessment/Plan Last 24 Hours: My Active Orders 02/12/21 19:13 UA W/MICROSCOPIC [URIN] Stat
[2021-02-12 19:50] LABS: ANION GAP 13.5 mEq/L (7-13); CHLORIDE,CL 103 mmol/L (98-107); SODIUM,NA 142 mmol/L (136-145)
--- NOTE | 2021-02-12 20:02 | CR ---
PROCEDURE INFORMATION: Exam: XR Chest Exam date and time: 02/12/2021 7:22 PM Age: 60 years old Clinical indication: Other: Chest pain TECHNIQUE: Imaging protocol: XR of the chest. Views: 1 view. COMPARISON: CR Chest 2V 07/14/2019 1:17 PM FINDINGS: Lungs: Unremarkable. No consolidation. Pleural spaces: Unremarkable. No pleural effusion. No pneumothorax. Heart/Mediastinum: Unremarkable. No cardiomegaly. Bones/joints: Unremarkable. IMPRESSION: No acute findings.
== END 2021-02-12 20:25 | disposition home or self-care (01) ==
LOC: DL.ED 18:25
DX: R53.83 Other fatigue (principal); R53.81 Other malaise; M06.1 Adult-onset Still's disease; I10 Essential (primary) hypertension; E03.9 Hypothyroidism, unspecified; D64.9 Anemia, unspecified; Z88.8 Allergy status to other drugs, medicaments and biological substances; Z88.1 Allergy status to other antibiotic agents; Z79.899 Other long term (current) drug therapy
CPT/HCPCS: 36415; 71045; 80053; 82150; 83735; 83880; 84443; 84484; 85025; 85379; 85610; 86140; 93005; 99285; A9270

== ENCOUNTER 2021-05-31 17:47 | Emergency (ER) | payer MEDICAID ==
[2021-05-31 18:06] VITALS: BP 137/86; PULSE 96
[2021-05-31] MEDS ORDERED: Aspirin 81 MG Tab.Chew PO ONE (18:09)
--- NOTE | 2021-05-31 18:26 | EDM.PDOC ---
<Michele Ramsay M - Last Filed: 05/31/21 18:29> ED HPI GENERAL MEDICAL PROBLEM - General Chief Complaint: Chest Pain Stated Complaint: CHEST PAIN Time Seen by Provider: 05/31/21 18:02 Source of Information: Reports: Patient History Limitations: Reports: No Limitations - History of Present Illness INITIAL COMMENTS - FREE TEXT/NARRATIVE: This 60 yo female patient reports to the ED with substernal chest pain. The patient reports intermittent symptoms since she got up from her nap this afternoon. The patient reports her pain increases with movement. The patient has not taken anything for temporary symptom improvement. Onset: Today Duration: Intermittent Location: Reports: Chest Quality: Reports: Ache, Sharp Severity: Moderate Improves with: Reports: Rest Worsens with: Reports: Movement Context: Reports: Other Associated Symptoms: Reports: Chest Pain chest Pain Score (Numeric/FACES): 8 - Related Data Allergies Allergy/AdvReac Type Severity Reaction Status Date / Time cetirizine [From Zyrtec] Allergy Chest Pain Verified 05/31/21 18:06 escitalopram oxalate Allergy Cannot Verified 05/31/21 18:06 [From Lexapro] Remember sertraline HCl [From Zoloft] Allergy Cannot Verified 05/31/21 18:06 Remember Home Meds: Home Meds Levothyroxine Sodium [Tirosint] 125 mcg PO DAILY 01/05/14 [History] Triamcinolone Acetonide [Triamcinolone Acetonide 0.1% Crm] 1 applic TOP QID PRN 09/09/15 [History] Cholecalciferol (Vitamin D3) [Vitamin D3] 1 tab PO DAILY 09/30/15 [History] Folic Acid 1 mg PO DAILY 07/14/19 [History] Methotrexate 7.5 mg PO .EVERYFRIDAY 07/14/19 [History] Tocilizumab [Actemra] 162 mg SQ .[id number] 07/14/19 [History] Fluticasone Propionate [Flonase Allergy Relief] 1 spray NASBOTH BID 03/26/20 [History] Lactobacillus Acidophilus [Acidophilus Lactobacilli] 1 cap PO DAILY 03/26/20 [History] hydroCHLOROthiazide [Hydrochlorothiazide] 1 cap PO DAILY 02/12/21 [History] Past Medical History HEENT History: Reports: Cataract, Sinusitis Cardiovascular History: Reports: High Cholesterol, Hypertension Respiratory History: Reports: Bronchitis, Recurrent, Pneumonia, Recurrent Gastrointestinal History: Reports: Chronic Constipation, Chronic Diarrhea Genitourinary History: Reports: None 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: Musculoskeletal History: Reports: Fibromyalgia Other Musculoskeletal History: muscle aches Neurological History: Reports: None Psychiatric History: Reports: Depression Endocrine/Metabolic History: Reports: Hypothyroidism Hematologic History: Reports: Anemia Immunologic History: Reports: None Oncologic (Cancer) History: Reports: None Dermatologic History: Reports: Urticaria, Other (See Below) Other Dermatologic History: ALLERGIC TO SUNLIGHT - Infectious Disease History Infectious Disease History: Reports: Chicken Pox, Mumps - Past Surgical History Head Surgeries/Procedures: Reports: None HEENT Surgical History: Reports: None Cardiovascular Surgical History: Reports: None Respiratory Surgical History: Reports: None GI Surgical History: Reports: Colonoscopy Female Surgical History: Reports: Salpingo-Oophorectomy Other Female Surgeries/Procedures: bilateral Endocrine Surgical History: Reports: None Musculoskeletal Surgical History: Reports: None Social & Family History - Family History Family Medical History: No Pertinent Family History - Tobacco Use Tobacco Use Status *Q: Never Tobacco User - Caffeine Use Caffeine Use: Reports: Tea - Recreational Drug Use Recreational Drug Use: No - Living Situation & Occupation Living situation: Reports: with Family ED ROS GENERAL - Review of Systems Review Of Systems: Comprehensive ROS is negative, except as noted in HPI. ED EXAM, GENERAL - Physical Exam Exam: See Below Exam Limited By: No Limitations General Appearance: Alert, WD/WN, Moderate Distress Eye Exam: Bilateral Eye: EOMI, Normal Inspection, PERRL Ears: Normal External Exam, Normal Canal, Hearing Grossly Normal, Normal TMs Nose: Normal Inspection, Normal Mucosa, No Blood Throat/Mouth: Normal Inspection, Normal Lips, Normal Teeth, Normal Gums, Normal Oropharynx, Normal Voice, No Airway Compromise Head: Atraumatic, Normocephalic Neck: Normal Inspection, Supple, Non-Tender, Full Range of Motion Respiratory/Chest: No Respiratory Distress, Lungs Clear, Normal Breath Sounds, No Accessory Muscle Use, Chest Non-Tender Cardiovascular: Normal Peripheral Pulses, Regular Rate, Rhythm, No Edema, No Gallop, No JVD, No Murmur, No Rub GI/Abdominal: Normal Bowel Sounds, Soft, Non-Tender, No Organomegaly, No Distention, No Abnormal Bruit, No Mass (Female) Exam: Deferred Rectal (Female) Exam: Deferred Back Exam: Normal Inspection, Full Range of Motion, NT Extremities: Normal Inspection, Normal Range of Motion, Non-Tender, Normal Capillary Refill, No Pedal Edema Neurological: Alert, Oriented, CN II-XII Intact, Normal Cognition, Normal Gait, Normal Reflexes, No Motor/Sensory Deficits Psychiatric: Normal Affect, Anxious Skin Exam: Warm, Dry, Intact, Normal Color, No Rash Lymphatic: No Adenopathy #1 Interpretation EKG Date: 05/31/21 Time: 17:57 Rhythm: NSR Rate (Beats/Min): 90 [place]: Normal P-Wave: Present QRS: Normal ST-T: Normal QT: Normal Comparison: No Change Departure - Departure Disposition: Home, Self-Care 01 Clinical Impression: Anterior chest wall pain, Hypokalemia Instructions: Chest Wall Pain, [id number], Nonspecific Chest Pain, Adult, [id number] Forms: ED Department Discharge Additional Instructions: tylenol 500mg every 4 hours as needed for discomfort follow recheck if symptoms worsen, difficulty breathing, radiation of pain, increases with activity Sepsis Event Note (ED) - Evaluation Sepsis Screening Result: No Definite Risk <Clarice Cedeno - Last Filed: 05/31/21 19:14> Course - Vital Signs Last Recorded V/S: Last Vital Signs Temp 97.9 F 05/31/21 18:01 Pulse 96 05/31/21 18:01 Resp 20 05/31/21 18:01 BP 137/86 05/31/21 18:01 Pulse Ox 99 05/31/21 18:01 - Orders/Labs/Meds Orders: Active Orders 24 hr Category Date Time Status CULTURE BLOOD [BC] Stat Lab 05/31/21 18:18 Results Labs: Laboratory Tests 05/31/21 05/31/21 05/31/21 Range/Units 18:18 18:18 18:18 WBC 6.0 (5.0-10.0) 10^3/uL RBC 4.10 L (4.2-5.4) 10^6/uL Hgb 13.7 (12.0-16.0) g/dL Hct 39.5 (37.0-47.0) % MCV 96.3 (80-100) fL MCH 33.4 (27.0-34.0) pg MCHC 34.7 (33.0-35.0) g/dL Plt Count 235 (150-450) 10^3/uL Neut % (Auto) 48.1 (42.2-75.2) % Lymph % (Auto) 39.8 (20.5-50.1) % [place] % (Auto) 7.2 (2-8) % Eos % (Auto) 4.7 H (1.0-3.0) % Baso % (Auto) 0.2 (0.0-1.0) % Sodium 144 (136-145) mmol/L Potassium 3.3 L (3.5-5.1) mmol/L Chloride 105 (98-107) mmol/L Carbon Dioxide 25 (21-32) mmol/L Anion Gap 17.3 H (7-13) mEq/L BUN 11 (7-18) mg/dL Creatinine 0.75 (0.55-1.02) mg/dL Est Cr Clr Drug Dosing 73.74 mL/min Estimated GFR (MDRD) > 60 BUN/Creatinine Ratio 14.7 (No establ ref range) Glucose 146 H (70-99) mg/dL Lactic Acid 1.0 (0.4-2.0) mmol/L Calcium 8.5 (8.5-10.1) mg/dL Total Bilirubin 0.5 (0.2-1.0) mg/dL AST 31 (15-37) U/L ALT 69 H (14-59) U/L Alkaline Phosphatase 89 (46-116) U/L Troponin I High Sens 11 (<=51) pg/mL Total Protein 6.9 (6.4-8.2) g/dL Albumin 3.9 (3.4-5.0) g/dL Globulin 3.0 Albumin/Globulin Ratio 1.3 Meds: Medications Discontinued Medications Generic Name Dose Route Start Last Admin Trade Name Freq PRN Reason Stop Dose Admin Aspirin 324 mg 05/31/21 18:09 05/31/21 18:11 Aspirin 81 Mg Tab.Chew PO 05/31/21 18:10 324 mg ONETIME ONE Administration Potassium Chloride 20 meq 05/31/21 19:11 Potassium Chloride 10 Meq Tab.Er PO 05/31/21 19:12 ONETIME ONE Departure - Departure Time of Disposition: 19:12 Condition: Good Sepsis Event Note (ED) - Focused Exam Vital Signs: Vital Signs Temp Pulse Resp BP Pulse Ox 05/31/21 18:01 97.9 F 96 20 137/86 99
--- NOTE | 2021-05-31 18:55 | CR ---
PROCEDURE INFORMATION: Exam: XR Chest Exam date and time: 05/31/2021 6:28 PM Age: 60 years old Clinical indication: Pain; Left-sided; Additional info: Chest pain TECHNIQUE: Imaging protocol: XR of the chest. Views: 1 view. COMPARISON: CR Chest 1V Frontal 02/12/2021 7:22 PM FINDINGS: Lungs: Unremarkable. No consolidation. Pleural spaces: Unremarkable. No pleural effusion. No pneumothorax. Heart/Mediastinum: Unremarkable. No cardiomegaly. Bones/joints: No evidence of acute osseous abnormality. IMPRESSION: No radiographically apparent acute abnormality in the chest. No significant change from prior.
[2021-05-31 19:00] LABS: ANION GAP 17.3 mEq/L (7-13); CHLORIDE,CL 105 mmol/L (98-107); SODIUM,NA 144 mmol/L (136-145)
[2021-05-31] MEDS ORDERED: Potassium Chloride 10 MEQ Tab.ER PO ONE (19:11)
== END 2021-05-31 19:26 | disposition home or self-care (01) ==
LOC: DL.ED 17:47
DX: R07.89 Other chest pain (principal); E87.6 Hypokalemia; I10 Essential (primary) hypertension; E03.9 Hypothyroidism, unspecified; Z88.8 Allergy status to other drugs, medicaments and biological substances; Z79.899 Other long term (current) drug therapy
CPT/HCPCS: 36415; 71045; 80053; 83605; 84484; 85025; 87040; 93005; 99285; A9270

== ENCOUNTER 2021-08-11 17:50 | Emergency (ER) | payer MEDICAID, OTHER ==
[2021-08-11 19:44] VITALS: BP 146/97; PULSE 114
--- NOTE | 2021-08-11 19:46 | CR ---
PROCEDURE INFORMATION: Exam: XR Left Ribs with PA Chest Exam date and time: 08/11/2021 7:04 PM Age: 60 years old Clinical indication: Other: Fall/pain TECHNIQUE: Imaging protocol: XR Left ribs with PA chest. Views: 3 views COMPARISON: CR Chest 1V Frontal 05/31/2021 6:28 PM FINDINGS: Lungs: Small parenchymal opacity left lung base. Finding likely represents atelectasis. Clinical correlation to exclude an infectious process suggested. Lungs otherwise clear. Pleural spaces: Unremarkable. No pleural effusion. No pneumothorax. Heart/Mediastinum: Unremarkable. No cardiomegaly. Bones/joints: Unremarkable. IMPRESSION: Small parenchymal opacity left lung base. Finding likely represents atelectasis. Clinical correlation to exclude an infectious process suggested.
--- NOTE | 2021-08-11 20:18 | EDM.PDOC ---
ED HPI GENERAL MEDICAL PROBLEM - General Chief Complaint: Chest Pain Stated Complaint: FELL AND INJURED RIB Time Seen by Provider: 08/11/21 20:13 Source of Information: Reports: Patient History Limitations: Reports: No Limitations - History of Present Illness INITIAL COMMENTS - FREE TEXT/NARRATIVE: 60 y/o F slipped on the ice and fell onto her L ribs. C/o L rib pain. No loc, no other complaints. Pt got up on her own without assistance. She would like an xray to make sure her ribs are not broken. Left Chest Pain Score (Numeric/FACES): 6 - Related Data Allergies Allergy/AdvReac Type Severity Reaction Status Date / Time cetirizine [From Zyrtec] Allergy Chest Pain Verified 05/31/21 18:06 escitalopram oxalate Allergy Cannot Verified 05/31/21 18:06 [From Lexapro] Remember sertraline HCl [From Zoloft] Allergy Cannot Verified 08/11/21 19:45 Remember Home Meds: Home Meds Levothyroxine Sodium [Tirosint] 125 mcg PO DAILY 01/05/14 [History] Cholecalciferol (Vitamin D3) [Vitamin D3] 1 tab PO DAILY 09/30/15 [History] Folic Acid 1 mg PO DAILY 07/14/19 [History] Methotrexate 7.5 mg PO .QSUNDAY 07/14/19 [History] Tocilizumab [Actemra] 162 mg SQ .[id number] 07/14/19 [History] Fluticasone Propionate [Flonase Allergy Relief] 1 spray NASBOTH BID 03/26/20 [History] Lactobacillus Acidophilus [Acidophilus Lactobacilli] 1 cap PO DAILY 03/26/20 [History] hydroCHLOROthiazide [Hydrochlorothiazide] 1 cap PO DAILY 02/12/21 [History] predniSONE 10 mg PO ASDIRECTED PRN 08/11/21 [History] Past Medical History HEENT History: Reports: Cataract, Sinusitis Cardiovascular History: Reports: High Cholesterol, Hypertension Respiratory History: Reports: Bronchitis, Recurrent, Pneumonia, Recurrent Gastrointestinal History: Reports: Chronic Constipation, Chronic Diarrhea Genitourinary History: Reports: None 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: Musculoskeletal History: Reports: Fibromyalgia Other Musculoskeletal History: muscle aches Neurological History: Reports: None Psychiatric History: Reports: Depression Endocrine/Metabolic History: Reports: Hypothyroidism Hematologic History: Reports: Anemia Immunologic History: Reports: None Oncologic (Cancer) History: Reports: None Dermatologic History: Reports: Urticaria, Other (See Below) Other Dermatologic History: ALLERGIC TO SUNLIGHT - Infectious Disease History Infectious Disease History: Reports: Chicken Pox, Mumps - Past Surgical History Head Surgeries/Procedures: Reports: None HEENT Surgical History: Reports: None Cardiovascular Surgical History: Reports: None Respiratory Surgical History: Reports: None GI Surgical History: Reports: Colonoscopy Female Surgical History: Reports: Salpingo-Oophorectomy Other Female Surgeries/Procedures: bilateral Endocrine Surgical History: Reports: None Musculoskeletal Surgical History: Reports: None Social & Family History - Family History Family Medical History: No Pertinent Family History - Tobacco Use Tobacco Use Status *Q: Former Tobacco User Used Tobacco, but Quit: Yes Month/Year Tobacco Last Used: 06/2010 - Caffeine Use Caffeine Use: Reports: Coffee - Recreational Drug Use Recreational Drug Use: No - Living Situation & Occupation Living situation: Reports: with Family ED ROS GENERAL - Review of Systems Review Of Systems: Comprehensive ROS is negative, except as noted in HPI. Constitutional: Reports: No Symptoms HEENT: Reports: No Symptoms Respiratory: Reports: No Symptoms Cardiovascular: Reports: No Symptoms Endocrine: Reports: No Symptoms GI/Abdominal: Reports: No Symptoms : Reports: No Symptoms Musculoskeletal: Reports: No Symptoms Skin: Reports: No Symptoms Neurological: Reports: No Symptoms Psychiatric: Reports: No Symptoms Hematologic/Lymphatic: Reports: No Symptoms Immunologic: Reports: No Symptoms ED EXAM, GENERAL - Physical Exam Exam: See Below Exam Limited By: No Limitations General Appearance: Alert, No Apparent Distress Nose: Normal Inspection, Normal Mucosa, No Blood Throat/Mouth: Normal Inspection, Normal Lips, Normal Teeth, Normal Gums, Normal Oropharynx, Normal Voice, No Airway Compromise Head: Atraumatic, Normocephalic Neck: Normal Inspection, Supple, Non-Tender, Full Range of Motion Respiratory/Chest: No Respiratory Distress, Lungs Clear, Normal Breath Sounds, No Accessory Muscle Use, Other (tender to palpation L lower ribs) Cardiovascular: Normal Peripheral Pulses, Regular Rate, Rhythm, No Edema, No Gallop, No JVD, No Murmur, No Rub GI/Abdominal: Soft, Non-Tender (Female) Exam: Deferred Rectal (Female) Exam: Deferred Back Exam: Normal Inspection, Full Range of Motion Extremities: Normal Inspection, Normal Range of Motion, Non-Tender, Normal Capillary Refill, No Pedal Edema Skin Exam: Warm, Dry, Intact Course - Vital Signs Last Recorded V/S: Last Vital Signs Temp 98.0 F 08/11/21 19:39 Pulse 114 H 08/11/21 19:39 Resp 16 08/11/21 19:39 BP 146/97 H 08/11/21 19:39 Pulse Ox 97 08/11/21 19:39 Departure - Departure Time of Disposition: 20:16 Disposition: Home, Self-Care 01 Condition: Good Clinical Impression: Rib pain on left side - Discharge Information *PRESCRIPTION DRUG MONITORING PROGRAM REVIEWED*: Not Applicable *COPY OF PRESCRIPTION DRUG MONITORING REPORT IN PATIENT ELE: Not Applicable Instructions: Chest Wall Pain, [id number] Additional Instructions: Use tylenol for pain as needed. Ice your ribs. Follow up with your primary care facility in a week if your symptoms do not improve. If any new symptoms or concerns develop contact your primary care facility or return to the ER. Sepsis Event Note (ED) - Evaluation Sepsis Screening Result: No Definite Risk - Focused Exam Vital Signs: Vital Signs Temp Pulse Resp BP Pulse Ox 08/11/21 19:39 98.0 F 114 H 16 146/97 H 97
== END 2021-08-11 20:22 | disposition home or self-care (01) ==
LOC: DL.ED 17:50
DX: R07.81 Pleurodynia (principal); I10 Essential (primary) hypertension; E03.9 Hypothyroidism, unspecified; E78.00 Pure hypercholesterolemia, unspecified; Z88.8 Allergy status to other drugs, medicaments and biological substances; Z79.899 Other long term (current) drug therapy; Z87.891 Personal history of nicotine dependence
CPT/HCPCS: 71101-LT; 99283-25

== ENCOUNTER 2023-10-26 11:52 | Emergency (ER) | payer MEDICAID ==
[2023-10-26 12:41] LABS: BASOPHILS PERCENT AUTO 0.1 % (0.0-1.0); EOSINOPHILS PERCENT AUTO 2.9 % (1.0-3.0); HEMOGLOBIN 14.3 g/dL (12.0-16.0); LYMPHOCYTES PERCENT AUTO 36.6 % (20.5-50.1); MEAN CORPUSCULAR VOLUME 91.1 fL (80-100); MONOCYTES PERCENT AUTO 6.6 % (2-8); NEUTROPHILS PERCENT AUTO 53.8 % (42.2-75.2); PLATELET COUNT,PLT 345 10^3/uL (150-450); RED BLOOD CELL COUNT 4.61 10^6/uL (4.2-5.4); WHITE BLOOD CELL COUNT,WBC 8.7 10^3/uL (5.0-10.0)
[2023-10-26] MEDS: Sodium Chloride 0.9% 10 ML Syringe FLUSH PRN (12:54)
[2023-10-26] MEDS: Aspirin 81 MG Tab.Chew PO ONE (12:54)
[2023-10-26 12:58] LABS: ALBUMIN 3.9 g/dL (3.4-5.0); ANION GAP 11.4 mEq/L (7-13); BILIRUBIN TOTAL 0.3 mg/dL (0.2-1.0); BUN/CREATININE RATIO 13.9 (No establ ref range); CALCIUM 8.8 mg/dL (8.5-10.1); CREATININE 0.79 mg/dL (0.55-1.02); EST CRCL DRUG DOSING (CG) 67.35 mL/min; POTASSIUM,K 3.4 mmol/L (3.5-5.1); PROTEIN TOTAL,TP 7.7 g/dL (6.4-8.2)
[2023-10-26 13:09] VITALS: PULSE 68
[2023-10-26] MEDS: GI Cocktail Oral Solution 30 ML PO ONE (13:43)
[2023-10-26 14:03] VITALS: BP 132/88
== END 2023-10-26 14:05 | disposition home or self-care (01) ==
LOC: DL.ED 11:52
DX: R07.89 Other chest pain (principal); I10 Essential (primary) hypertension; E78.00 Pure hypercholesterolemia, unspecified; Z86.16 Personal history of COVID-19; Z79.899 Other long term (current) drug therapy; Z88.8 Allergy status to other drugs, medicaments and biological substances; Z88.1 Allergy status to other antibiotic agents
CPT/HCPCS: 36415; 71045; 80053; 84484; 85025; 93005; 93010; 99284; 99285; A9270-GY; J3490

== ENCOUNTER 2024-12-17 21:52 | Emergency (ER) | payer MEDICAID, OTHER ==
[2024-12-17 22:52] VITALS: BP 157/112; PULSE 96
== END 2024-12-17 23:13 | disposition home or self-care (01) ==
LOC: DL.ED 21:52
DX: R10.12 Left upper quadrant pain (principal); R10.32 Left lower quadrant pain; I10 Essential (primary) hypertension; E03.9 Hypothyroidism, unspecified; Z88.8 Allergy status to other drugs, medicaments and biological substances; Z79.890 Hormone replacement therapy; Z79.899 Other long term (current) drug therapy
CPT/HCPCS: 99283